=== PATIENT | female | born 1955 | race Caucasian/White ===

== ENCOUNTER 2023-03-29 07:46 | Outpatient (REF) | payer MEDICARE, OTHER, SELFPAY ==
--- NOTE | ~2023-03-29 | XR_ITS ---
EXAMINATION: XR SHOULDER, LEFT CLINICAL INFORMATION: Pain. COMPARISON: None available. TECHNIQUE: AP neutral and scapular Y views of the left shoulder are submitted. FINDINGS: Bony alignment and mineralization are normal. The glenohumeral joint is intact. The acromioclavicular interval is widened to 1.0 cm. The coracoclavicular interval is normal. No fracture is seen. There is no soft tissue calcification or foreign body. No left pneumothorax is seen. XR/XR shoulder LT min 2V IMPRESSION: Findings are consistent with a left acromioclavicular separation injury. No fracture is seen.
== END 2023-03-29 07:47 | disposition home or self-care (01) ==
LOC: HO.HOSX 07:46
PROVIDERS: Visit Provider Orthopaedic Surgery
DX: M75.02 Adhesive capsulitis of left shoulder (principal); M25.512 Pain in left shoulder
CPT/HCPCS: 73030; 99212

== ENCOUNTER 2023-03-29 08:54 | Outpatient (AMB) | payer MEDICARE, OTHER, SELFPAY ==
--- NOTE | 2023-03-29 09:03 | A.OFFVIS_ITS ---
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 Hernandez for an evaluation of left shoulder. Patient reports around [id number] she had b/l shoulder surgery for frozen shoulders. The patient states that she was doing fairly well up until 1 year ago. At that time she re-injured her left shoulder while lifting heavy object. Since that time her pain and stiffness have gotten progressively worse in spite of continued non operative treatments. She has tried Tylenol and anti- inflammatory medicines which gave her minimal relief. She has also done physi asim therapy for 12 weeks over the last 6 months which aggravated her pain. She has had cortisone injections in the past which gave her minimal relief. The patient reports difficulty lifting her left hand above shoulder height. Allergies No Known Allergies Allergy (Verified 03/29/23 09:06) Medication List - Last Reconciled 03/29/23 by Lucho Hernandez MD No Known Home Meds [facility] Surgical History (Updated 03/29/23 @ 09:17 by JAMAR Aviles) Hx of shoulder surgery Social History (Updated 03/29/23 @ 09:06 by JAMAR Aviles) Patient Tobacco Use Status: Never used Tobacco Current occupational status: retired Current occupation: right hand dominant Physical Exam Vital Signs: BMI result Body Mass Index 28.5 Const Other: Well-nourished well-developed very friendly female awake alert and oriented x3 in no acute distress Lungs clear to auscultation bilaterally with symmetric expansion Cardiovascular exam regular rate and rhythm Abdominal exam is soft nontender nondistended Extrem Other: Bilateral upper extremity examination shows good capillary refill, no skin lesions noted, normal sensation light touch Left shoulder examination shows that the surgical incisions are well healed, no erythema, decreased active and passive range of motion when compared to her right shoulder, 4+ over 5 strength with supraspinatus testing, positive impingement signs, tenderness over her acromioclavicular joint, no instability Results Reviewed Results Reviewed: X-rays of the patient's left shoulder shows acromioclavicular joint narrowing, type 2 acromion, no acute bony abnormalities Assessment & Plan Assessment & Plan (1) Adhesive capsulitis of left shoulder: Code(s): M75.02 - Adhesive capsulitis of left shoulder Plan: Ms. Rea presents with progressively worsening left shoulder pain and stiffness due to impingement syndrome, acromioclavicular joint arthritis and adhesive capsulitis. I had a lengthy discussion with the patient regarding the treatment options. At this point she has failed continued non operative treatments. The risks and benefits of left shoulder surgery were discussed at length with the patient. The patient wishes to proceed with surgery. Surgery will most likely involve left shoulder diagnostic arthroscopy with distal clavicle excision, acromioplasty, capsular release and manipulation under anesthesia. Because the patient's symptoms are severe and intractable we will schedule her surgery for as soon as possible. Coronavirus precautions will be taken. Patient will continue with her range of motion exercises in the meantime to prevent further stiffness. Feel free to call me at any time should questions regarding her orthopedic management arise. Thank you very much past past this very friendly patient. I spent 22 minutes in reviewing the patient's records and imaging studies, seeing the patient and documenting in the medical record. Orders: Orders XR shoulder LT min 2V Today M25.512 - Pain in left shoulder Coding Level of Care Code Est Pt Level 2 (54368) Diagnoses Adhesive capsulitis of left shoulder M75.02
[2023-03-29 09:06] VITALS: BMI 28.5
== END 2023-03-29 09:34 | disposition home or self-care (01) ==
PROVIDERS: PCP Internal Medicine; Visit Provider Orthopaedic Surgery
DX: M75.02 Adhesive capsulitis of left shoulder (principal)
CPT/HCPCS: 99212

== ENCOUNTER 2023-04-21 07:13 | Day surgery (SDC) | payer MEDICARE, OTHER, SELFPAY ==
[2023-04-18 14:47] VITALS: BMI 28.5
--- NOTE | 2023-04-20 09:04 | HO.ANESPROP2 ---
Documented by User: Nano Berrios NP 04/20/23 09:09 HPI - Anesthesia Eval Consult details Narrative: 67yo F Left Shoulder Arthroscopy distal clavicle excision, acromioplasty capsular release PMFSH Active Problems Active Problems: All Active Problems (Updated 04/18/23 @ 14:44 by Estefany Rivera RN) Adhesive capsulitis of left shoulder (Acute) Left shoulder pain (Acute) Past Medical History Medical History Left shoulder pain Surgical History Surgical History Hx of colonoscopy Hx of appendectomy Hx of shoulder surgery Social History Social History Patient Tobacco Use Status: Never used Tobacco Current occupational status: retired Current occupation: right hand dominant Meds Allergies Allergy/AdvReac Type Severity Reaction Status Date / Time No Known Allergies Allergy Verified 04/21/23 07:34 Home Medications Medication Instructions Recorded Confirmed Last Taken Type estradiol 0.01% (0.1 mg/gram) 1 g vaginal 2XW 04/18/23 04/18/23 Unknown History vaginal cream Exam Exam Date and Time: April 20, 2023 0904 Height,Weight and Vital Signs: Height 5 ft 4 in Weight 75.296 kg Assessment and Plan Assessment Anesthesia Assessment: Chart Reviewed Documented by User: Murray Mcneil MD 04/23/23 20:40 PMFSH Past Medical History Medical History Left shoulder pain Family History Family history of problems with anesthesia: No Surgical History Surgical History Hx of colonoscopy Hx of appendectomy Hx of shoulder surgery History of Problems with Anesthesia: Yes Social History Social History Patient Tobacco Use Status: Never used Tobacco Current occupational status: retired Current occupation: right hand dominant Meds Allergies Allergy/AdvReac Type Severity Reaction Status Date / Time No Known Allergies Allergy Verified 04/21/23 07:34 Home Medications Medication Instructions Recorded Confirmed Last Taken Type estradiol 0.01% (0.1 mg/gram) 1 g vaginal 2XW 04/18/23 04/18/23 Unknown History vaginal cream Exam Airway Mallampati Class: II TM Dist: >3cm Neck ROM: Full Loose/Missing/Broken Teeth: Yes Heart: rrr Lungs: cta Assessment and Plan Assessment Anesthesia Assessment: Anesthesia Plan Discussed Final Anesthetic Review Family History of Problems with Anesthesia: No History of Problems with Anesthesia: Yes NPO: No ASA Class: I Final Preanesthetic Review: Meds/Allgs Chart Reviewed, Consent Obtained/Reviewed and Anes Risks/Benef Reviewed Patient Risk: Intermediate Procedure Risk: Intermediate Anesthetic Plan Anesthetic Plan: GA and Regional Block Disposition: Standard PACU
[2023-04-21 07:35] VITALS: BMI 28.5
[2023-04-21] MEDS: Lactated Ringers 1,000 ML 100 ML IVCONT (07:54)
--- NOTE | 2023-04-21 10:49 | P.BOP_ITS ---
Brief Operative Note Date of Service: 04/21/23 Pre-op diagnosis: Left shoulder impingement syndrome, left shoulder adhesive capsulitis, left shoulder acromioclavicular joint arthritis Post-op diagnosis: same Procedure: Left shoulder diagnostic arthroscopy with left shoulder arthroscopic acromioplasty, left shoulder arthroscopic distal clavicle excision, left shoulder arthroscopic anterior capsular release, left shoulder manipulation unde r anesthesia Implants: none Surgeon: Lucho Hernandez MD Anesthesia: GETA and regional Was an Stripping Shovel Operator used for this Procedure?: No Estimated blood loss (mL): 10 Pathology: none sent Condition: stable Disposition: PACU
--- NOTE | 2023-04-21 10:50 | W.PM.OPN ---
Operative Note Operative Note Date of Service: 04/21/23 Narrative: After the patient was identified as Kayleen Rea and their left shoulder was initialed by myself the patient was brought to the holding area where a left shoulder interscalene regional block was performed by the anesthesiologist in routine fashion. The patient was then brought to the operating room where general anesthesia was induced by the anesthesiologist in routine fashion. The patient was given 2 g of IV Ancef preoperatively for infection prophylaxis. Examination under anesthesia of the patient's left shoulder showed decreased range of motion when compared to the right shoulder. The patient's left shoulder had forward flexion to 140 degrees compared to 170 degrees, external rotation to 30 degrees compared to 60 degrees, and internal rotation to 40 degrees compared to 50 degrees. The patient was gently positioned in the beach chair position with all bony prominences well padded. The patient's left shoulder region and upper extremity were prepped and draped in sterile fashion. A formal time-out was completed. A #11 scalpel blade was used to make a posterior portal 2 cm inferior and 1 cm medial to the posterolateral corner of the acromion. Blunt trocar technique was used to enter the glenohumeral joint in routine fashion. An anterior portal was made just lateral to the coracoid process after proper positioning was confirmed using a spinal needle. Diagnostic arthroscopy showed minimal degenerative changes of the glenoid and humeral head articular surfaces. There was no evidence of rotator cuff tearing. There was no evidence of injury to the biceps tendon or its insertion onto the glenoid. There was inflammation of the anterior joint capsule consistent with adhesive capsulitis. The ArthroCare Wand was then used to perform an anterior capsular release between the inferior border of the biceps tendon and the superior border of the subscapularis tendon. The arthroscope was then placed from the posterior portal into the subacromial space. A lateral portal was made 2 fingerbreadths lateral to the anterior lateral corner of the acromion. The ArthroCare Wand was used to ablate soft tissues along the undersurface of the acromion as well as to excise the coracoacromial ligament. There was a sharp spur along the undersurface of the acromion which was removed using the hooded bur. The arthroscope was then placed into the lateral portal and the acromioplasty was completed with the bur in the posterior portal using the posterior aspect of the acromion as a cutting block. The ArthroCare Wand was then brought in through the anterior portal and was used to ablate soft tissues along the acromioclavicular joint and distal clavicle. The posterior and superior ligamentous structures were left intact. A distal clavicle excision of 3 mm was performed using the hooded bur. Any remaining bursal tissue was removed using the arthroscopic shaver. The subacromial space was irrigated and then drained. All arthroscopic instruments were removed. A gentle manipulation under anesthesia was then performed. Full passive range of motion was easily obtained. The 3 portals were closed with 3-0 nylon interrupted suture. The subacromial space was injected with Marcaine. Dry sterile dressing was placed over all incisions. The patient's left upper extremity was placed into a sling. The patient was awoken and extubated in the operating room. The patient was transferred to the recovery room in stable condition.
[2023-04-21 10:51] VITALS: BP 120/54; PULSE 77; RESP 15; TEMP 36.1; O2SAT 97
[2023-04-21 10:56] VITALS: BP 122/58; PULSE 75; RESP 17; O2SAT 92
[2023-04-21 11:01] VITALS: BP 127/57; PULSE 74; RESP 17; O2SAT 93
[2023-04-21 11:06] VITALS: BP 121/60; PULSE 76; RESP 18; O2SAT 94
[2023-04-21 11:27] VITALS: BP 114/43; PULSE 74; RESP 18; TEMP 36.2; O2SAT 96
== END 2023-04-21 12:09 | disposition home or self-care (01) ==
PROVIDERS: PCP Internal Medicine; Visit Provider Orthopaedic Surgery
PROC: (CPT 29805; principal; 2023-04-21 09:00)
DX: M75.42 Impingement syndrome of left shoulder (principal); M75.02 Adhesive capsulitis of left shoulder; M19.022 Primary osteoarthritis, left elbow; Z87.828 Personal history of other (healed) physical injury and trauma; Z98.890 Other specified postprocedural states
CPT/HCPCS: 29824; 29825; 29826; J0171; J0690; J2250; J2405; J2795; J3010

== ENCOUNTER → 2023-04-21 07:13 | Outpatient (BNV) | payer MEDICARE, OTHER, SELFPAY | PROVIDERS: PCP Internal Medicine; Visit Provider Orthopaedic Surgery | DX: M75.42 Impingement syndrome of left shoulder (principal); M75.02 Adhesive capsulitis of left shoulder; M19.012 Primary osteoarthritis, left shoulder | CPT/HCPCS: 29824; 29825; 29826 ==

== ENCOUNTER 2023-05-03 08:16 | Outpatient (AMB) | payer MEDICARE, OTHER, SELFPAY ==
--- NOTE | 2023-05-03 08:22 | A.OFFVIS_ITS ---
Intake Intake Visit Reasons: PO-Lt Shoulder Arthroscopy 04/21 Intake Note: Kayleen a 67 year old female who presents today for a post operative left shoulder on 04/21/23 Patient reports she is doing well, states mild soreness. She will start working with PT on 05/05/23. Allergies No Known Allergies Allergy (Verified 05/03/23 08:26) HPI PO-Lt Shoulder Arthroscopy 04/21 HPI Details 67-year-old female who returns to the [facility] today for post-op left shoulder , 04/21/[address] Hernandez. She continues to have mild soreness in her shoulder but is doing well otherwise. She is about to start physical therapy on 05/05/23. She has no other concerns. [facility] Medical History Left shoulder pain Surgical History Hx of colonoscopy Hx of appendectomy Hx of shoulder surgery Social History Patient Tobacco Use Status: Never used Tobacco Current occupational status: retired Current occupation: right hand dominant Review of Systems Const All systems reviewed & are unremarkable except as noted in HPI and below Physical Exam Extrem Other: Left shoulder: Incision clean, dry and intact. No erythema. She has a forward flexion to 110 degrees. She is able to activate RTC strength. NVI. Assessment & Plan Assessment & Plan (1) History of arthroscopy of left shoulder: Code(s): Z98.890 - Other specified postprocedural states Plan Sutures removed today, steri strips applied. She will begin physical therapy on May 05 to work on ROM, periscapular stabilization and gentle RTC strengthening. She can increase activity as tolerated and follow-up in [address] Hernandez, sooner if needed. Patient Instructions: Scribed for Hugh Castro PA-C, by Mauricio Gallo back office medical assistant, on 05/03/2023 at 8:30 AM EST. I, Hugh Castro PA-C, have personally reviewed and agree with the information entered by the scribe. Coding Level of Care Code Global (13788) Diagnoses History of arthroscopy of left shoulder Z98.890
== END 2023-05-03 08:48 | disposition home or self-care (01) ==
PROVIDERS: PCP Internal Medicine; Visit Provider Physician Assistant
DX: Z98.890 Other specified postprocedural states (principal)
CPT/HCPCS: 99024

== ENCOUNTER → 2023-05-03 08:16 | Outpatient (BNVA) | payer MEDICARE, OTHER, SELFPAY | PROVIDERS: PCP Internal Medicine; Visit Provider Physician Assistant ==

== ENCOUNTER 2023-06-01 08:56 | Outpatient (AMB) | payer MEDICARE, OTHER, SELFPAY ==
--- NOTE | 2023-06-01 09:17 | MHC.OFFVIS ---
Intake Intake Visit Reasons: PO-Lt Shoulder Arthroscopy 04/21 Intake Note: Patient is a 67 year old female that presents for her post op appointment. She had a left shoulder arthroscopy on 04/21/23. She states she has been attending physical therapy. She denies any fevers or chills. She is taking ibuprofen daily and ice for 10 minutes each day. Allergies No Known Allergies Allergy (Verified 06/01/23 09:19) Medication List - Last Reconciled 06/01/23 by Chacha Brown RN estradiol 0.01%(0.1mg/gram) 1 g vaginal 2XW PFSH Medical History Left shoulder pain Surgical History Hx of colonoscopy Hx of appendectomy Hx of shoulder surgery Social History Patient Tobacco Use Status: Never used Tobacco Current occupational status: retired Current occupation: right hand dominant Physical Exam Extrem Other: Left shoulder examination shows that the surgical incisions are well healed, no erythema, almost full range of motion when compared to her right shoulder, mild discomfort with range of motion, 5/5 strength with supraspinatus testing Assessment & Plan Assessment & Plan (1) Left shoulder pain: Code(s): M25.512 - Pain in left shoulder Plan: Ms. Rea continues to do well after undergoing left shoulder arthroscopic surgery on 04/21/2023. She will continue with her physical therapy exercises. The do's and don'ts of lifting were discussed at length with the patient. She will contact me prior to her follow-up appointment in 2-3 months should any questions or concerns arise. Feel free to call me at any time should questions regarding her orthopedic management arise. Orders: Orders XR shoulder LT min 2V Today M25.512 - Pain in left shoulder Coding Level of Care Code Global (88762) Diagnoses Left shoulder pain M25.512
== END 2023-06-01 09:28 | disposition home or self-care (01) ==
PROVIDERS: PCP Internal Medicine; Visit Provider Orthopaedic Surgery
DX: M25.512 Pain in left shoulder (principal)
CPT/HCPCS: 99024

== ENCOUNTER 2023-06-01 14:58 | Outpatient (REF) | payer MEDICARE, OTHER, SELFPAY ==
--- NOTE | ~2023-06-01 | XR_ITS ---
EXAMINATION: XR SHOULDER, LEFT CLINICAL INFORMATION: Pain. COMPARISON: Radiographs dated 03/29/2023. TECHNIQUE: AP external rotation, Grashey, scapular Y, and axillary views of the left shoulder. FINDINGS: There is bony demineralization. The glenohumeral joint is intact. The, clavicular intervals while 9 mm. The coracoclavicular interval is normal. No fracture is seen. No soft tissue calcifications or foreign body. No left pneumothorax is seen. XR/XR shoulder LT min 2V IMPRESSION: There is stable mild widening of the left acromioclavicular joint, consistent with a separation injury. No discrete fracture is seen.
== END 2023-06-01 14:59 | disposition home or self-care (01) ==
LOC: HO.HOSX 14:58
PROVIDERS: Visit Provider Orthopaedic Surgery
DX: M25.512 Pain in left shoulder (principal)
CPT/HCPCS: 73030

== ENCOUNTER 2023-06-09 09:00 | Outpatient (RCR) | payer MEDICARE, OTHER, SELFPAY ==
--- NOTE | 2023-05-05 09:50 | MHC.PT.EP ---
[facility] [place] Office [place] Office [place] Office [address] Maude Jaquez [address] [phone] F: [phone] F: [phone] F: [phone] F: [phone] Physical Therapy Plan of Care Date of Evaluation: 05/05/23 Date of Surgery: 04/21/23 Diagnosis: Adhesive capsulitis of L shoulder, s/p L shoulder arthroscopic debridement (04/21/23) Assessment: Kayleen is a 67 year old female who is referred to PT for adhesive capsulitis of L shoulder . Kayleen however stated that 2 weeks back (04/21/23) she had a arthroscopic surgery. Per brief op report she had- Left shoulder diagnostic arthroscopy with left shoulder arthroscopic acromioplasty, left shoulder arthroscopic distal clavicle excision, left shoulder arthroscopic anterior capsular release, left shoulder manipulation under anesthesia . She reports of having shoulder pain for about 2 months. Denies having any trauma or falls. On PT examination she presented with no TTP, 1-5/10 pain in L shoulder with movements, decreased L shoulder ROM, decreased L shoulder and scap strength, altered posture and altered GH rhythm. Due to this she has pain and difficulty performing ADLS. She would benefit from skilled PT to address the aforementioned impairments and improve tolerance to functional activities. Frequency and Duration: The patient will be seen 2/week for 5 weeks. Short Term Goals: 1. Pt will have 50% decrease in pain which will enable her to sleep through the night in 2 weeks. 2. Pt will have all shoulder ROM WNL which will enable her to dress her upper body without pain in 3 weeks. Umbrella Frame Maker Goals: 1. Pt demonstrate an increase in muscle strength by 1 grade which will enable to return to lifting and carrying for ADLS without pain in 5 weeks. 2. Pt will be independent with HEP for symptom management and maintenance following d/c in 5 weeks. Treatment Plan: Modalities to reduce pain, spasms and effusion. Manual therapy to restore motion and function. Therapeutic exercise to improve strength and flexibility. Neuromuscular re-education for posture and balance. Therapeutic activities to return to functional activities of daily living. Electronically signed by: Paradise Garcia PT DPT Please sign and return to therapist. Thank you for your referral.
--- NOTE | 2023-06-09 09:47 | MHC.PT.DC ---
[facility] [place] Office [place] Office [place] Office [address] Maude Jaquez [address] [phone] F: [phone] F: [phone] F: [phone] F: [phone] Physical Therapy Discharge Report Diagnosis: Adhesive capsulitis of L shoulder, s/p L shoulder arthroscopic debridement (04/21/23) Date of Surgery: 04/21/23 Date of Evaluation: 05/05/23 Date of Discharge: 06/09/23 Treatments to Date: 11 Cancellations to Date: 0 No Shows to Date: 0 Discharge Status: Achieved Goals Improved Function Independent with HEP Discharge Summary: Kayleen has completed 11 PT visits and has achieved all goals set for her. She is independent with all her HEP and has returned to PLOF. She is therefore being d/c from PT today. I reviewed all HEP and she was in agreement with the plan. Electronically signed by: Paradise Garcia, PT DPT Please sign and return to therapist. Thank you for your referral.
== END 2023-06-09 09:47 | disposition home or self-care (01) ==
LOC: HO.PT 09:00
PROVIDERS: PCP Internal Medicine; Visit Provider Physician Assistant
DX: M75.02 Adhesive capsulitis of left shoulder (principal)
CPT/HCPCS: 97110; 97140; 97161; 97530

== ENCOUNTER 2023-08-08 09:00 | Outpatient (AMB) | payer MEDICARE, OTHER, SELFPAY ==
--- NOTE | 2023-08-08 09:06 | A.OFFVIS_ITS ---
Intake Intake Visit Reasons: PO-Lt Shoulder Arthroscopy 04/21/23 Intake Note: Kayleen is a 67 year old female who presents today for a follow up visit s/p Left shoulder Arthroscopy on 04/21/23. Patient reports having a numbing sensation and pain that starts from her shoulder down to her hand. Patient also reports progressively worsening neck pain. She describes her pain as sharp in nature. Her pain has gotten worse over the last year in spite of continued non operative treatments. She has tried Tylenol and anti-inflammatory medicines which gave her minimal relief. The patient has difficulty sleeping because of her pain. She denies any pain in her shoulder. She denies any fevers or chills. She has done physical therapy exercises which aggravated her pain. Allergies No Known Allergies Allergy (Verified 08/08/23 09:22) Medication List - Last Reconciled 08/08/23 by Lucho Hernandez MD estradiol 0.01%(0.1mg/gram) 1 g vaginal 2XW methylprednisolone (Medrol (Lupillo)) PO PER PK DIR [facility] Medical History (Updated 08/08/23 @ 09:42 by Lucho Hernandez MD) Left shoulder pain Surgical History Hx of colonoscopy Hx of appendectomy Hx of shoulder surgery (~2009) Social History Patient Tobacco Use Status: Never used Tobacco Current occupational status: retired Current occupation: right hand dominant Physical Exam Const Other: Well-nourished well-developed very friendly female awake alert and oriented x3 in no acute distress Neck Other: Cervical spine examination shows pain with range of motion, left-sided paraspinal muscle tenderness, positive Spurling's test, 4/5 strength with testing of her left biceps and wrist extensors when compared to 5/5 strength on her right side Extrem Other: Left shoulder examination shows that the surgical incisions are well healed, no erythema, full range of motion when compared to her right shoulder, no discomfort with range of motion Assessment & Plan Assessment & Plan (1) Left shoulder pain: Code(s): M25.512 - Pain in left shoulder Plan: Ms. Rea is doing well after undergoing left shoulder arthroscopic surgery on 04/21/2023. She will continue with her home stretching program to prevent stiffness. Patient does have progressively worsening neck pain which radiates down to her left hand as well as associated left arm weakness possibly due to cervical stenosis or a disc herniation. Thus, I will send the patient for an MRI of her cervical spine for further evaluation. I will contact her by phone once the MRI results are available. I did give her a prescription for a Medrol Dosepak to help with her symptoms in the meantime. Feel free to call me at any time should questions regarding her orthopedic management arise. (2) Neck pain: Code(s): M54.2 - Cervicalgia Plan I spent 22 minutes in reviewing the patient's records and imaging studies, seeing the patient and documenting in the medical record. Orders: Orders MR cervical spine wo con Today M54.2 - Cervicalgia Medications: New methylprednisolone (Medrol (Lupillo)) PO PER PKG DIR 21 ea 0RF Coding Level of Care Code Est Pt Level 2 (32152) Diagnoses Left shoulder pain M25.512 Neck pain M54.2
== END 2023-08-08 09:43 | disposition home or self-care (01) ==
PROVIDERS: PCP Internal Medicine; Visit Provider Orthopaedic Surgery
DX: M25.512 Pain in left shoulder (principal); M54.2 Cervicalgia
CPT/HCPCS: 99213

== ENCOUNTER → 2023-08-08 09:00 | Outpatient (BNVA) | payer MEDICARE, OTHER, SELFPAY | PROVIDERS: PCP Internal Medicine; Visit Provider Orthopaedic Surgery | DX: M25.512 Pain in left shoulder (principal); M54.2 Cervicalgia; Z98.890 Other specified postprocedural states | CPT/HCPCS: 99212 ==

== ENCOUNTER 2023-08-31 12:48 | Outpatient (AMB) | payer MEDICARE, OTHER, SELFPAY ==
--- NOTE | 2023-08-31 13:01 | MHC.OFFVIS ---
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 She is a very nice 67-year-old female who has had 2-3 months of severe pain radiating down her left arm going into her shoulder blade into her forearm and hand with numbness into her fingers. Mostly it is her middle finger. The pain can be awful at night to where she is unable to sleep. She does not report feeling weakness of the arm. There are no symptoms on the right side. She had tried prednisone taper, and ibuprofen. To this point no other conservative treatment. [facility] and foraminal narrowing. She was sent to us for evaluation. Currently she is still having a significant amount of pain on a daily basis. If she moves her head the wrong way she can make the pain go down her arm. PMH: She is otherwise healthy, she had a shoulder arthroscopy a while ago. Denies any heart attacks, strokes, bleeding disorders, pulmonary problems or kidney issues Social hx: She has not smoke, drink or use any recreational drugs Medications: Ibuprofen Allergies: None Physical exam: She is awake alert oriented no acute distress, she has full strength of bilateral upper extremities, reflexes 3+ and symmetric. Gait is normal. Imaging review: Cervical MRI done at [facility] shows multilevel degenerative disc disease. At C5-6 there is disc degeneration with a slight amount of narrowing of the foramen bilaterally, mild to moderate central stenosis. At C6-7 on the left there is a disc osteophyte complex compressing the left C7 nerve root. Impression: 67-year-old female presents to the office for evaluation of what sounds like a left C7 radiculopathy secondary to the disc osteophyte complex at C6-7 on the left. She tried a prednisone taper, ibuprofen and tincture of time. She is neurologically intact. The symptoms are quite severe, particularly at night. We discussed the fact that if the pain is so severe and disabling she would be a good candidate for surgery, specifically anterior cervical diskectomy and fusion. At this time she has not quite ready to commit to the idea of surgery. Given that she has private insurance as a secondary insurance to Medicare they will require that she undergo physical therapy before surgery anyway so I gave her a referral to PT and asked her to come back to the office in 6 weeks and we can re-evaluate how she is doing. Thank you for allowing us to care for your patient. The total time spent with this visit with this patient was 45 minutes reviewing history, physical exam, cervical imaging review, and implementation of treatment plan or further diagnostic testing Cesar Heath MD,PhD [facility] Orders: Orders PT Evaluation and Treatment Today M48.02 - Spinal stenosis, cervical region Coding Level of Care Code New Pt Level 4 (85771) Diagnoses Cervical stenosis of spinal canal M48.02
== END 2023-08-31 13:34 | disposition home or self-care (01) ==
PROVIDERS: PCP Internal Medicine; Referring Provider Orthopaedic Surgery; Visit Provider Physician Assistant
DX: M48.02 Spinal stenosis, cervical region (principal)
CPT/HCPCS: 99204

== ENCOUNTER → 2023-08-31 12:48 | Outpatient (BNVA) | payer MEDICARE, OTHER, SELFPAY | PROVIDERS: PCP Internal Medicine; Referring Provider Orthopaedic Surgery; Visit Provider Physician Assistant | DX: M48.02 Spinal stenosis, cervical region (principal) | CPT/HCPCS: 99202 ==

== ENCOUNTER 2023-10-19 13:57 | Outpatient (AMB) | payer MEDICARE, OTHER, SELFPAY ==
--- NOTE | 2023-10-19 14:13 | HO.SPINEOV ---
Intake Intake Visit Reasons: PT f/up Intake Note: Ms. Kilgore is here today to F/u after PT. 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 She has about 2 more weeks left of physical therapy. She reports that the pain that was in the distal part of her arm is significantly better and the numbness is going away. She is still having significant subscapular pain as well as pain underneath her armpit and down into her elbow. Sleeping remains quite difficult. Her strength is excellent in a reflexes are intact bilaterally. I think this is resolving cervical radiculopathy and that in time it will continue to go away. However, I would like to follow-up with her in 1 month. If she has no better at that time and still having a lot of difficulty with pain then we can consider ACDF. I did review her films at [facility] Dr. Heath today and the target of choice would be the C6-7 disc which has a large osteophyte on the left compressing the left C7 nerve root. The patient was given risks, benefits of surgery as well as recovery. Total amount of time spent in this visit was 20 minutes in discussion of symptoms, cervical imaging results and subsequent plan of care Cesar Heath MD,PhD [facility] Coding Level of Care Code Est Pt Level 3 (14373) Diagnoses Cervical radiculopathy M54.12
== END 2023-10-19 14:40 | disposition home or self-care (01) ==
PROVIDERS: PCP Internal Medicine; Visit Provider Physician Assistant
DX: M54.12 Radiculopathy, cervical region (principal)
CPT/HCPCS: 99213

== ENCOUNTER → 2023-10-19 13:57 | Outpatient (BNVA) | payer MEDICARE, OTHER, SELFPAY | PROVIDERS: PCP Internal Medicine; Visit Provider Physician Assistant | DX: M54.12 Radiculopathy, cervical region (principal) | CPT/HCPCS: 99212 ==

== ENCOUNTER 2023-11-23 14:12 | Outpatient (AMB) | payer MEDICARE, OTHER, SELFPAY ==
--- NOTE | 2023-11-23 14:16 | HO.SPINEOV ---
Intake Visit Reasons: 1 month follow up Intake Note: Ms. 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 The arm pain is basically gone at this point in her strength is back to normal. She does still get some cramping in her subscapular area but it is not all that bothersome. At this point, I do not think we need to consider surgery as she is in recovery from her radiculopathy. We discussed the fact that if she continues to have back and forth situation where the pain comes and goes she may ultimately end up needing surgery but for right now things are okay. I will see her back if the pain returns. Total amount of time spent in this visit was 20 minutes in discussion of symptoms, cervical MRI imaging results and subsequent plan of care Cesar Heath MD,PhD [facility]
== END 2023-11-23 15:25 | disposition home or self-care (01) ==
PROVIDERS: PCP Internal Medicine; Visit Provider Physician Assistant
DX: M54.12 Radiculopathy, cervical region (principal)
CPT/HCPCS: 99213

== ENCOUNTER → 2023-11-23 14:12 | Outpatient (BNVA) | payer MEDICARE, OTHER, SELFPAY | PROVIDERS: PCP Internal Medicine; Visit Provider Physician Assistant | DX: M54.12 Radiculopathy, cervical region (principal) | CPT/HCPCS: 99212 ==

== ENCOUNTER 2023-12-15 14:14 | Outpatient (AMB) | payer MEDICARE, OTHER, SELFPAY ==
--- NOTE | 2023-12-15 14:42 | A.SPINEOV_ITS ---
Intake Visit Reasons: pain in the right arm Intake Note: Ms. Rea is here c/o pain in the right arm and would like to Discuss surgery Director Of Retail Required: No Allergies No Known Allergies Allergy (Verified 12/15/23 14:43) Assessment & Plan Assessment & Plan (1) Cervical radiculopathy: Code(s): M54.12 - Radiculopathy, cervical region Category: Medical Plan Mrs Rea is back in the office today. Unfortunately the left arm pain has come back full force. It radiates from her neck down into her left arm going into her forearm, the dorsal aspect of her hand into her middle in her ring finger. The pain has been terrible, she has not able to sleep at night, or able to f unction much during the day. She has been taking ibuprofen. At this point she has been through 3 months of physical therapy in the symptoms have come right back. I do not think there is much more usefulness to this. Dr. Heath and I had previously reviewed her imaging done at [facility], and despite the radiology report not suggesting a lot of compression, it is a poor quality study but we believe that there is a disc osteophyte or a disc herniation on the left at C6- 7. This would fit with her symptom presentation. We are going to order a new MRI just to confirm this for surgical planning since her last MRI was back in August. The symptoms had gone away but now that they have come back, we would like to be more clear that there is not a another disc herniation involved. I will call her to confirm the plan once the MRIs completed but we have tentatively scheduled her for an ACDF C6-7. Pt was given risk and benefits of surgery including but not limited to infection, hematoma , nerve injury,durotomy, weakness,bowel/bladder injury, persistent pain, vocal hoarseness as well as the option to continue with conservative treatment and patient wishes to proceed with surgery. Pt is aware they should stop their motrin, aspirin 7 days prior to surgery. All questions were answered to the best of our ability. If there is anything about this patients medical history that we have overlooked or concerns you have about us proceeding with surgery we would appreciate any input you can offer. Total amount of time spent in this visit was 20 minutes in discussion of symptoms, cervical MRI imaging results and subsequent plan of care Cesar Heath MD,PhD [facility] Orders: Orders MR cervical spine wo con Today M54.12 - Radiculopathy, cervical region Coding Level of Care Code Est Pt Level 3 (92362) Diagnoses Cervical radiculopathy M54.12
== END 2023-12-15 15:07 | disposition home or self-care (01) ==
PROVIDERS: PCP Internal Medicine; Visit Provider Physician Assistant
DX: M54.12 Radiculopathy, cervical region (principal)
CPT/HCPCS: 99213

== ENCOUNTER → 2023-12-15 14:14 | Outpatient (BNVA) | payer MEDICARE, OTHER, SELFPAY | PROVIDERS: PCP Internal Medicine; Visit Provider Physician Assistant | DX: M54.12 Radiculopathy, cervical region (principal) | CPT/HCPCS: 99212 ==

== ENCOUNTER 2023-12-20 08:00 | Outpatient (RCR) | payer MEDICARE, OTHER, SELFPAY ==
--- NOTE | 2023-09-18 10:35 | MHC.PT.EP ---
[facility] [place] Office [place] Office [place] Office [address] Maude Jaquez [address] [phone] F: [phone] F: [phone] F: [phone] F: [phone] Physical Therapy Plan of Care Date of Evaluation: 09/18/23 Date of Surgery: 04/21/23 (L shoulder) Diagnosis: Cervical radiculopathy Assessment: Kayleen is a pleasant 67 yo female presenting to skilled physical therapy evaluation and treatment with c/o cervical radiculopathy. Pt underwent L shoulder sx performed by Dr. Hernandez on 04/21/23 and attended PT services until 06/09/23. Pt reports sudden onset of constant sharp px in L anterior shoulder beginning in 07/29. She reports shooting pain and tingling down L UE to digits 3-5. Pt had cervical MRI, which revealed mild disc involvement through C5-7. She has the most functional difficulty with sleeping, reaching OH, vacuuming, and certain R UE movements. Upon evaluation, pt presents with radicular s/s, decreased cervical ROM, and periscapular tissue restriction. Pt demonstrates postural deficits consistent with poor deep neck flexor and periscapular stability, which is exacerbated throughout mobility. All UE dermatomes and myotomes are WNL, indicating no significant nerve involvement at this time. Kayleen would benefit from skilled PT services to address muscular imbalances, promote centralization of s/s, and provide education on postural stability for improved functional mobility and return to PLOF. Pt is recommended to attend PT 2x/week for 4 weeks. Frequency and Duration: The patient will be seen 2x/week for 4 weeks Short Term Goals: Pt will demonstrate independence with initial HEP through teach-back method showing proper adherence to PT Pt will report no radicular s/s below L elbow, indicating centralization of s/s Pt will be able to sleep without interruption for 1 consecutive week Prison Goals: Pt will demonstrate pain-free cervical ROM WNL, allowing improved mechanics throughout mobility Pt will be able to perform 15 consecutive chin tucks seated with proper form and DNF activation Pt will improve functional mobility as noted through statistically significant increase in NDI outcome measure Treatment Plan: Modalities to reduce pain, spasms and effusion. Manual therapy to restore motion and function. Therapeutic exercise to improve strength and flexibility. Neuromuscular re-education for posture and balance. Therapeutic activities to return to functional activities of daily living. Electronically signed by: Pamella Das, PT, DPT Please sign and return to therapist. Thank you for your referral.
--- NOTE | 2023-12-22 12:54 | MHC.PT.DC ---
[facility] [place] Office [place] Office [place] Office [address] Maude Jaquez [address] [phone] F: [phone] F: [phone] F: [phone] F: [phone] Physical Therapy Discharge Report Diagnosis: Cervical radiculopathy Date of Surgery: 04/21/23 (L shoulder) Date of Evaluation: 09/18/23 Date of Discharge: 12/22/23 Treatments to Date: Cancellations to Date: No Shows to Date: Discharge Status: Discharge Summary: Pt has made fair progress since SOC. She previously achieved centralization of her symptoms however her symptoms were exacerbated and she continues to have radicular symptoms throughout L UE. She has followed up with the spine clinic and has ultimately decided to undergo surgery in order to manage her symptoms. She is being D/C from skilled PT as she is scheduled for surgery next Electronically signed by: Pamella Das, PT, DPT Please sign and return to therapist. Thank you for your referral.
== END 2023-12-22 12:54 | disposition home or self-care (01) ==
LOC: HO.PT 08:00
PROVIDERS: PCP Internal Medicine; Visit Provider Physician Assistant
DX: M48.02 Spinal stenosis, cervical region (principal)
CPT/HCPCS: 97012; 97110; 97112; 97140; 97161; 97530

== ENCOUNTER 2024-01-04 10:56 | Day surgery (SDC) | payer MEDICARE, OTHER, SELFPAY ==
[2023-12-26 13:35] VITALS: BMI 27.8
[2024-01-04] VITALS (10 sets, daily range): BP systolic 120–143; BP diastolic 52–65; PULSE 57–75; RESP 14–16; TEMP 36.3–36.9; O2SAT 93–100; BMI 27.3
--- NOTE | ~2024-01-04 | FL_ITS ---
EXAMINATION: XR FLUOROSCOPY WITH IMAGES CLINICAL INFORMATION: C6-C7 anterior cervical disc with fusion. COMPARISON: None available. TECHNIQUE: Fluoroscopy Supervised By: Dr. Mitchell. Fluoroscopy Time: 0.2 min. Cumulative Dose: 3.56 mGy. DAP: 0.0374 mGym2. Images: 4. FINDINGS: Intraoperative fluoroscopy and spot films were performed during a procedure in the OR. Two images show mechanical anterior disc fusion at C6-C7. Please see Dr. Mitchell' report for complete details. FL/FL guidance in OR IMPRESSION: Intraoperative fluoroscopy and spot films were obtained. Please see Dr. Mitchell' report for complete details.
[2024-01-04] MEDS: methocarbamoL 750 MG TABLET PO (11:11)
[2024-01-04] MEDS: Gabapentin 300 MG CAPSULE PO (11:11)
[2024-01-04] MEDS: Lactated Ringers 1,000 ML 100 ML IVCONT (11:27)
--- NOTE | 2024-01-04 11:56 | MHC.SHP ---
Pre-Procedural Eval Section A - 24 Hr Update-Section A only Date of Service: 01/04/24 The patient is an INPATIENT: No The patient has been examined within 24 hours of the surgical procedure. The History & Physical has been completed within 30 days and I have reviewed it.: Yes Section B - Complete if H&P > 30 days Chief Complaint: Radiculopathy, cervical region Allergies: Allergies Allergy/AdvReac Type Severity Reaction Status Date / Time No Known Allergies Allergy Verified 01/04/24 11:33 Plan Diagnosis/Plan: Unchanged I have reviewed the history and physical and performed a pertinent physical examination on my patient. No changes have occurred unless specified. Anterior diskectomy and fusion C6-7 Time Spent With Patient Time: Total time managing care of this patient today _6___ minutes.
--- NOTE | 2024-01-04 12:10 | HO.ANESPROP2 ---
Documented by User: Nano Berrios NP 01/03/24 11:38 HPI - Anesthesia Eval Consult details Narrative: 68yo F for C6-7 Ant Cerv Discectomy w/ fusion No PAT visit PMFSH Active Problems Active Problems: All Active Problems Cervical radiculopathy (Acute) Cervical stenosis of spinal canal (Acute) Neck pain (Acute) History of arthroscopy of left shoulder (Acute) Adhesive capsulitis of left shoulder (Acute) Left shoulder pain (Acute) Past Medical History Medical History (Updated 01/04/24 @ 11:33 by Chacha Encinas RN) Rosacea Dense breasts Osteopenia Hyperlipidemia Anemia Adjustment disorder Back pain Elevated cholesterol Left shoulder pain Family History Family history of problems with anesthesia: No Surgical History Surgical History H/O section Hx of colonoscopy Hx of appendectomy Hx of shoulder surgery (~2009) History of Problems with Anesthesia: Yes Social History Social History Are you a primary care manager to a significant other at home: No Do you presently have visiting nurse or other home services: No Patient Tobacco Use Status: Never used Tobacco Use of substances other than those prescribed or required for medical reasons: No Have you been hit, kicked, punched, or otherwise hurt by someone within the past year? If so, by whom?: No Are you DNR?: No Advance Directives: No Advance Directives Information Provided: Yes Advance Directives on File: No Recently lost weight without trying: No Eating poorly because of decreased appetite: No Nutrition Risks: No Nutritional Risk Patient : No : No Poor oral hygiene: No Current occupational status: retired Current occupation: right hand dominant Meds Allergies Allergy/AdvReac Type Severity Reaction Status Date / Time No Known Allergies Allergy Verified 01/04/24 11:33 Home Medications ?Medication ?Instructions ?Recorded ?Confirmed ?Last Taken ?Type estradiol 0.01% (0.1 mg/gram) 1 g vaginal 2XW 04/18/23 12/26/23 Unknown History vaginal cream Exam Height,Weight and Vital Signs: Height 5 ft 4 in Weight 73.482 kg Pertinent Lab Results Pertinent Lab Results: CBC and BMP from outside facility 10/2023 WNL Narrative Narrative: EKG 10/2023 SB @ [address] abnormality No change from previous Assessment and Plan Assessment Anesthesia Assessment: Chart Reviewed Final Anesthetic Review Family History of Problems with Anesthesia: No History of Problems with Anesthesia: Yes Documented by User: Chacha Davis DO 01/04/24 12:13 HPI - Anesthesia Eval Consult details Narrative: 68 yo F for C6-7 Ant Cerv Discectomy w/ fusion PMFSH Past Medical History Medical History (Updated 01/04/24 @ 11:33 by Chacha Encinas RN) Rosacea Dense breasts Osteopenia Hyperlipidemia Anemia Adjustment disorder Back pain Elevated cholesterol Left shoulder pain Family History Family history of problems with anesthesia: No Surgical History Surgical History H/O section Hx of colonoscopy Hx of appendectomy Hx of shoulder surgery (~2009) History of Problems with Anesthesia: No Social History Social History Are you a primary care manager to a significant other at home: No Do you presently have visiting nurse or other home services: No Patient Tobacco Use Status: Never used Tobacco Use of substances other than those prescribed or required for medical reasons: No Have you been hit, kicked, punched, or otherwise hurt by someone within the past year? If so, by whom?: No Are you DNR?: No Advance Directives: No Advance Directives Information Provided: Yes Advance Directives on File: No Recently lost weight without trying: No Eating poorly because of decreased appetite: No Nutrition Risks: No Nutritional Risk Patient : No : No Poor oral hygiene: No Current occupational status: retired Current occupation: right hand dominant Meds Allergies Allergy/AdvReac Type Severity Reaction Status Date / Time No Known Allergies Allergy Verified 01/04/24 11:33 Home Medications ?Medication ?Instructions ?Recorded ?Confirmed ?Last Taken ?Type estradiol 0.01% (0.1 mg/gram) 1 g vaginal 2XW 04/18/23 12/26/23 Unknown History vaginal cream Exam Exam Date and Time: January 04, 2024 1208 Height,Weight and Vital Signs: Height 5 ft 4 in Weight 73.482 kg Height 5 ft 4 in Weight 72.121 kg Vital Signs Temperature 98.5 F 01/04/24 11:19 Pulse Rate 61 01/04/24 11:19 Respiratory Rate 15 01/04/24 11:19 Blood Pressure 143/65 H 01/04/24 11:19 Pulse Oximetry 99 01/04/24 11:19 Oxygen Delivery Method Room Air 01/04/24 11:19 Temperature 98.5 F 01/04/24 11:19 Pulse Rate 61 01/04/24 11:19 Respiratory Rate 15 01/04/24 11:19 Blood Pressure 143/65 H 01/04/24 11:19 Pulse Oximetry 99 01/04/24 11:19 Oxygen Delivery Method Room Air 01/04/24 11:19 Airway Mallampati Class: I TM Dist: >3cm Neck ROM: Limited Loose/Missing/Broken Teeth: No (patient denies any loose or broken teeth) Heart: S1S2 Lungs: CTAB Assessment and Plan Assessment Anesthesia Assessment: Anesthesia Plan Discussed and Chart Reviewed Final Anesthetic Review Family History of Problems with Anesthesia: No History of Problems with Anesthesia: No NPO: Yes ASA Class: II Final Preanesthetic Review: No Changes in Pt Med Stat, Meds/Allgs Chart Reviewed, Consent Obtained/Reviewed and Anes Risks/Benef Reviewed Patient Risk: Low Procedure Risk: Intermediate Anesthetic Plan Anesthetic Plan: GA and Agree w/ Assess. and Plan Disposition: Standard PACU
--- NOTE | 2024-01-04 14:21 | W.PM.OPN ---
Operative Note Operative Note Date of Service: 01/04/24 Narrative: Preoperative Diagnosis: Cervical radiculopathy, left side Procedure: C6-7 Anterior discectomy, arthrodesis and implantation cage ; C6-7 anterior instrumentation ; local autograft; microscope Informed Consent was obtained for this operation. I have explained the nature, purpose and benefits of the operation. I have discussed the risks and benefit of the operation including possible complications or adverse events with patient/family. Alternative(s) were discussed with the patient with their relative benefits and risks as well as the consequences of not accepting the operation were included in obtaining consent. Surgeon: BEBETO EWING MD, PHD Procedure Assisted By: NORTH Bragg Description of Procedure: This 68-year-old female suffering from a left cervical radiculopathy. MRI shows left C7 foraminal stenosis due to disc osteophyte complex. She was offered an anterior diskectomy and fusion The procedure complications were explained. The patient was consented. The patient was brought to the operating room and endotracheally intubated. The patient was put in supine position with slight extension of the neck. Prep and drape was done followed by timeout. A mid cervical incision was made followed by opening of the platysma. The prevertebral fascia was reached following the natural planes while the physician high school assistant football coach provided manual retraction. The prevertebral fascia was opened to expose the disc space. A spinal needle was placed in the disk space to confirm the correct level with xray. The longus colli muscles were released bilaterally and a self retaining retractor was inserted. Two [place] pins were placed in the C6-C7 vertebral bodies and distraction was give over the interspace. The discectomy was completed toward the posterior annulus of the disc. The microscope was brought in. The remainder of the discectomy was completed. The posterior ligament was opened and resected to expose the underlying dura. Osteophytes were resected from the body of C6 and C7 and saved for autograft. Bilateral foraminotomies were done. The endplates were prepared after which a 6 mm cage filled with autograft was inserted into the disc space. A separate attached plate was locked down with 2 x 14 mm screws as anterior instrumentation. Final x-rays in AP and lateral projection showed a satisfactory position of the implant. The physician high school assistant football coach took over. The [place] pin was removed. Hemostasis was done. He closed the incision in 2 layers with a 3-0 Vicryl. Steri-Strips used to approximate incision. An OpSite with Tegaderm was used to cover the incision. All sponge and needle counts were correct. Patient was extubated and transported in stable is to recovery room. Anesthesia: General Estimated Blood Loss (ml): 15 mL Duration of Surgery: 45 minutes Postoperative Plan: Discharge home Complications: None
--- NOTE | 2024-01-04 14:23 | PM.DS ---
DS: Providers Provider Date of Service: 01/04/24 Primary care physician: Fannie Sutton MD DS: Summary Time Attestation Discharge Coordination Time (in mins): 35 Quality: Safe Use of Opioids Does Pt have an Active Cancer Diagnosis on the Problem List?: No Quality: Stroke Does the patient have a stroke diagnosis?: No Physical Exam Vital Signs: Vital Signs: Last Vital Signs Temp 98.5 F 01/04/24 11:19 Pulse 61 01/04/24 11:19 Resp 15 01/04/24 11:19 BP 143/65 H 01/04/24 11:19 Pulse Ox 99 01/04/24 11:19 O2 Del Method Room Air 01/04/24 11:19 BMI result Body Mass Index 27.3 Discharge Plan Discharge Patient Disposition: Home, Self-Care Referrals: Salvador Sutton MD [Primary Care Provider] - 1 Week Discharge Medications: New oxycodone 5 mg tablet 5 mg PO Q6H PRN (Reason: severe pain (scale score 7-10)) Qty: 30 0RF Rx Instructions: Partial Fill upon patient request. Continued estradiol 0.01 % (0.1 mg/gram) cream 1 g vaginal 2XW Discharge Orders: Discharge Order (Routine); Ordered 01/04/24 Ordered By: Rancho Lozada Diet: Advance to usual diet Activity on Discharge: As tolerated Activity Restrictions/Additional Instructions: After your spinal surgery we ask you to observe the following restrictions/guidelines: Activity: It is normal to feel some discomfort as you increase your activity, but that will improve with time. We ask you avoid heavy lifting or acitivities that cause pain. As a general rule, 8lbs is a safe limit for lifting right after surgery. Walk as much as you feel comfortable but not to exhaustion. You will feel extra tired the first few days after surgery. Stay well hydrated. It is OK to walk up and down stairs You may return to driving when you are off narcotics (such as vicodin, oxycodone, dilaudid, etc), and you are back to normal functional capacity. If you have any concerns please check with office before driving. Return to work is specific to each patient and each surgery, so please speak with your doctor/PA at first follow up. Please bring paperwork such as FMLA at that time if you need it filled out. Medications: We will give you a short supply of narcotics after surgery (usually one weeks worth). If you need more please call the office but do not use more than prescribed. You will need to give our office 48 hours notice if you need narcotics refilled and we do not fill narcotics on weekends or evenings. If you are on a narcotic, it is a good idea to take a stool softener such as colace or senna to avoid constipation If you take blood thinner such as aspirin, Plavix, Coumadin, Effient, Eliquis etc for conditions such as Afib, DVT, Pulmonary embolus, coronary disease, stents etc please speak with your surgeon about specific details as to when you can resume these medications. You can resume NSAIDs on post op day 1 (eg: Motrin, Naproxen, etc). Follow up: Please call the office, , after surgery to arrange a 3 week follow up for wound check. Wound Care: You may remove your dressing on the first day after surgery. ?You may ?leave open to air. Please do not remove the steri strips underneath. they will fall off on their own in one week. IT IS NORMAL FOR THE WOUND TO OOZE OR BE BLOODY FOR A FEW DAYS AFTER SURGERY. ?IF THIS HAPPENS JUST PLACE NEW DRESSING OVER IT TO AVOID STAINING CLOTHES. You may shower on post op day # 1 We ask that you do not let the water soak the wound. If it does get wet, just towel dry lightly. Please do not scrub your incision or place any type of chemical/ointment on the wound. No tub baths, pools or jacuzzis for one month. If you have any leaking or redness from your wound, or fevers, please call the office. Print Language: Hungarian
[2024-01-04] MEDS: Ondansetron ODT 4 MG TAB.RAPDIS TRANSLINGU (16:27)
== END 2024-01-04 16:17 | disposition home or self-care (01) ==
PROVIDERS: PCP Internal Medicine; Visit Provider Neurological Surgery
PROC: (CPT 22551; principal; 2024-01-04 14:20)
DX: M48.02 Spinal stenosis, cervical region (principal); M54.12 Radiculopathy, cervical region
CPT/HCPCS: 22551; 22845; 22853; 20936; C1713; C1889; J0131; J0690; J1100; J1170; J2250; J2405; J2704; J3010

== ENCOUNTER → 2024-01-04 10:56 | Outpatient (BNV) | payer MEDICARE, OTHER, SELFPAY | PROVIDERS: PCP Internal Medicine; Visit Provider Neurological Surgery | DX: M54.12 Radiculopathy, cervical region (principal) | CPT/HCPCS: 20936; 22551; 22845; 22853; 99499 ==

== ENCOUNTER 2024-01-25 09:21 | Outpatient (AMB) | payer MEDICARE, OTHER, SELFPAY ==
--- NOTE | 2024-01-25 09:23 | A.SPINEOV_ITS ---
Intake Visit Reasons: 1st post op Intake Note: Ms. Rea is here today for her 1st post op appointment. Merchandise Presentation Associate Required: No Allergies No Known Allergies Allergy (Verified 01/04/24 11:33) Assessment & Plan Assessment & Plan (1) Cervical radiculopathy: Code(s): M54.12 - Radiculopathy, cervical region Category: Medical (2) S/P cervical spinal fusion: Code(s): Z98.1 - Arthrodesis status Category: Medical Plan Procedure: C6-7 ACDF Kayleen comes in today for her 1st postoperative visit. She reports she is satisfied with the surgery and feels better than she did pre-operatively. The patient reports she is up walking around and completing the majority of her ADLs. She reports that she no longer suffers from her left-sided shooting radiculopathy, but does still have some triceps burning on the left, and some sharps pains in her left axilla. She has not taking her narcotic pain medications anymore and reports she only took 4-5 of the medications after surgery. She asked several questions regarding the post-operative healing course which I answered to the best of my ability. She has encouraged not to swim until her incision site is fully healed over. No new neurological deficits. Patient is able to ambulate well, rises from a seated position without difficulty. Incision site is closed, well healing, with no signs of drainage. We will follow-up with the patient in 6 weeks for their 2nd postoperative visit. At that time we will get x-rays to review with the patient. Rancho Heath MD,PhD [facility] Coding Level of Care Code Global (82831) Diagnoses Cervical radiculopathy M54.12 S/P cervical spinal fusion Z98.1
== END 2024-01-25 09:37 | disposition home or self-care (01) ==
PROVIDERS: PCP Internal Medicine; Visit Provider Physician Assistant
DX: M54.12 Radiculopathy, cervical region (principal); Z98.1 Arthrodesis status
CPT/HCPCS: 99024

== ENCOUNTER → 2024-01-25 09:21 | Outpatient (BNVA) | payer MEDICARE, OTHER, SELFPAY | PROVIDERS: PCP Internal Medicine; Visit Provider Physician Assistant | DX: M54.12 Radiculopathy, cervical region (principal); Z98.1 Arthrodesis status | CPT/HCPCS: 99212 ==

== ENCOUNTER 2024-03-08 08:37 | Outpatient (REF) | payer MEDICARE, OTHER, SELFPAY ==
--- NOTE | ~2024-03-08 | XR_ITS ---
EXAMINATION: XR CERVICAL SPINE CLINICAL INFORMATION: Arthrodesis status. COMPARISON: None available. TECHNIQUE: 4 views of the cervical spine FINDINGS: Mild anterolisthesis of C3 on C4 with flexion. Mild anterolisthesis of C4 on C5 with flexion. Multilevel cervical spondylosis with loss of disc space height at C5-C6. Postsurgical changes with disc spacer at C6-C7. XR/XR cervical spine 4V IMPRESSION: 1. Postsurgical changes with disc spacer at C6-C7. 2. Multilevel cervical spondylosis with loss of disc space height at C5-C6.
== END 2024-03-08 08:38 | disposition home or self-care (01) ==
LOC: HO.HOSX 08:37
PROVIDERS: Visit Provider Physician Assistant
DX: M47.22 Other spondylosis with radiculopathy, cervical region (principal); Z98.1 Arthrodesis status
CPT/HCPCS: 72050; 99212

== ENCOUNTER 2024-03-08 08:45 | Outpatient (AMB) | payer MEDICARE, OTHER, SELFPAY ==
--- NOTE | 2024-03-08 08:47 | HO.SPINEOV ---
Intake Visit Reasons: 2nd post op with xrays Intake Note: Ms. Rea is here today for her 2nd post-op visit with x-rays. Griddle Attendant Required: No Allergies No Known Allergies Allergy (Verified 03/08/24 09:34) Assessment & Plan Assessment & Plan (1) S/P cervical spinal fusion: Code(s): Z98.1 - Arthrodesis status Category: Medical (2) Cervical radiculopathy: Code(s): M54.12 - Radiculopathy, cervical region Category: Medical Plan Mrs Rea is 2 months out from her ACDF C6-7. She is doing great, her are left arm pain is gone. She has no restrictions. Her x-rays look good in her wound is healed. She can follow up with us on an as-needed basis. Cesar Heath MD, PhD [facility] Orders: Orders XR cervical spine 4V Today Z98.1 - Arthrodesis status Coding Level of Care Code Global (12631) Diagnoses S/P cervical spinal fusion Z98.1 Cervical radiculopathy M54.12
== END 2024-03-08 09:47 | disposition home or self-care (01) ==
PROVIDERS: PCP Internal Medicine; Visit Provider Physician Assistant
DX: Z98.1 Arthrodesis status (principal); M54.12 Radiculopathy, cervical region
CPT/HCPCS: 99024

== ENCOUNTER 2025-05-06 08:38 | Outpatient (REF) | payer MEDICARE, OTHER, SELFPAY ==
--- NOTE | ~2025-05-06 | XR_ITS ---
EXAMINATION: XR KNEE, LEFT CLINICAL INFORMATION: M25.562 - Pain in left knee COMPARISON: None available. TECHNIQUE: Three views of the left knee. FINDINGS: There is mild narrowing of the medial joint space. There are small marginal sites along the medial joint line. There is no joint effusion. There is no sign of fracture. Patellofemoral joint is aligned. XR/XR knee LT 3V IMPRESSION: Mild osteoarthritis. Electronically signed by: Kobi Jennings MD 05/06/2025 09:45 AM EDT
--- OUTSIDE RECORDS SUMMARY | 2025-05-07 09:11 | XMS_ITS | Clinical Summary ---
Author Organization [facility] Address [address] [place] [address] Care Team Providers Care Cartography/Mapping Technician Name Role Phone Gibran Jane MD Primary [...] age to complete this topic Care Teams Cartography/Mapping Technician Relationship Specialty Start Date End Date Gibran Jane MD [address] [place] [address] PCP - General Flight Readiness Technician 12/11/18
== END 2025-05-06 08:39 | disposition home or self-care (01) ==
LOC: HO.HOSX 08:38
PROVIDERS: Visit Provider Orthopaedic Surgery
DX: S83.242A Other tear of medial meniscus, current injury, left knee, initial encounter (principal); X50.1XXA Overexertion from prolonged static or awkward postures, initial encounter
CPT/HCPCS: 73562; 99212

== ENCOUNTER 2025-05-06 09:22 | Outpatient (AMB) | payer MEDICARE, OTHER, SELFPAY ==
--- NOTE | 2025-05-06 09:36 | MHC.OFFVIS ---
Intake Visit Reasons: New prob- Lt knee pain Intake Note: Kayleen is a 69 year old female who presents with complaints of progressively worsening left knee pain and giving way. The patient states that she injured her knee approximately 6 months ago. She twisted her knee and had acute onset of pain. Since that time her symptoms have gotten progressively worse. She has failed the last 6 weeks of conservative treatment which has included Tylenol, ibuprofen, a home exercise program, physical therapy exercises as well as applying both ice and heat. Most of the pain is along the medial aspect of her knee. She states that her left knee will give out several times per day. At this point her left knee pain and mechanical symptoms are interfering with her activities of daily living and her ability to sleep well through the night. Allergies No Known Allergies Allergy (Verified 05/06/25 09:40) Medication List - Last Reconciled 05/06/25 by Lucho Hernandez MD alendronate 70 mg PO QWEEK estradiol 0.01%(0.1mg/gram) 1 g vaginal 2XW PFSH Medical History (Updated 05/06/25 @ 10:11 by Lucho Hernandez MD) Rosacea Dense breasts Osteopenia Hyperlipidemia Anemia Adjustment disorder Back pain Elevated cholesterol Left shoulder pain Surgical History (Updated 01/25/24 @ 09:34 by NORTH Bragg) H/O section Hx of colonoscopy Hx of appendectomy Hx of shoulder surgery (~2009) Social History Are you a primary patient care representative to a significant other at home: No Do you presently have visiting nurse or other home services: No Patient Tobacco Use Status: Never used Tobacco Current occupational status: retired Current occupation: right hand dominant Physical Exam Const Other: Well-nourished well-developed very friendly female awake alert and oriented x3 in no acute distress Extrem Other: Bilateral lower extremity examination shows good capillary refill, no skin lesions noted, normal sensation light touch Left knee examination shows a minimal effusion, minimal crepitus with range of motion, tenderness along her medial joint line, positive Pako's test, no instability Results Reviewed Results Reviewed: Standing full weight-bearing x-rays of the patient's left knee show mild diffuse joint space narrowing, no acute bony abnormalities Assessment & Plan Assessment & Plan (1) Tear of medial meniscus of left knee: Code(s): S83.242A - Other tear of medial meniscus, current injury, left knee, initial encounter Category: Medical Plan Mrs. Rea presents with progressively worsening left knee pain and mechanical symptoms most likely due to a medial meniscus tear. Thus, I will send the patient for an MRI of her left knee for further evaluation. I will see the patient back once the MRI is completed to discuss the findings and treatment options. Feel free to call me at any time should questions regarding her orthopedic management arise. I spent 21 minutes in reviewing the patient's records and imaging studies, seeing the patient and documenting in the medical record. Orders: Orders XR knee LT 3V Today M25.562 - Pain in left knee MR knee LT wo con 05/07/25 S83.242A - Other tear of medial meniscus, current injury, left knee, initial encounter Medications: New methylprednisolone (Medrol (Lupillo)) PO PER PKG DIR 21 ea 0RF Coding Level of Care Code Est Pt Level 3 (04797) Complex EM visit Add On G2211 Diagnoses Tear of medial meniscus of left knee S83.242A
--- OUTSIDE RECORDS SUMMARY | 2025-05-06 10:10 | XMS_ITS | Clinical Summary ---
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 Name Role Phone Gibran Jane MD Primary Care Provider + Medications Medication Sig Dispensed Refills Start Date End Date Status ibuprofen (IBUPROFEN 100 SONY STRENGTH) 100 MG chewable tablet ibuprofen 0 Active Active Problems Problem Noted Date Diagnosed Date Trochanteric bursitis, right hip 09/03/2019 Family History Medical History Relation Name Comments Cancer Brother Relation Name Status Comments Brother Social History Tobacco Use Types Packs/Day Years Used Date Smoking Tobacco: Never Assessed Sex and Gender Information Value Date Recorded Sex Assigned at Not on file Gender Identity Not on file Sexual Orientation Not on file Last Filed Vital Signs Vital Sign Reading Time Taken Comments Blood Pressure - - Pulse - - Temperature - - Respiratory Rate - - Oxygen Saturation - - Inhaled Oxygen Concentration - - Weight 72.6 kg (160 lb) 09/03/2019 10:05 AM EST Height 162.6 cm (5' 4 ) 09/03/2019 10:05 AM EST Body Mass Index 27.46 09/03/2019 10:05 AM EST Plan of Treatment Health Maintenance Due Date Last Done Comments Hepatitis C Screening 1955 COVID-19 Vaccine (#1) 03/26/1958 Depression Screening 1969 BMI Counseling 1975 Preventative Health Evaluation 1975 DTap / Tdap / Td (1 - Tdap) 1976 Colon Cancer Screening (Colonoscopy) 2002 Breast Cancer Screening (Mammogram) 2007 Shingrix-Zoster Vaccine (1 of 2) 2007 Fall Risk Assessment 2022 Osteoporosis Screening (DEXA Scan) 2022 Pneumococcal Vaccine (1 of 1 - PCV) 2022 Influenza Vaccine (#1) 2025 RSV Adult > 60+ Yrs or Pregn ant (1 - 1-dose 75+ series) 2032 Hepatitis B Vaccines Aged Out No long er eligible based on patient's age to complete this topic RSV Ped < 20 months Aged Out No longe r eligible based on patient's age to complete this topic Care Teams Adjunct Professor Of [employer] History Relationship Specialty Start Date End Date Gibran Jane MD [address] [place] [address] PCP - General Fagot Maker 12/11/18
--- OUTSIDE RECORDS SUMMARY | 2025-05-06 10:10 | XMS_ITS ---
Author Name [facility] Organization Unknown Encounters Encounter Type Encounter Reason Primary Diagnosis Location Date Ambulatory [facility] [place] 03/27/2023 Ambulatory [facility] [place] 03/03/2023
--- OUTSIDE RECORDS SUMMARY | 2025-05-06 10:10 | XMS_ITS | Data Portability ---
Author Organization [place] - [facility], Allergy Address [address] [address] Care Team Providers Care Senior Graphic Designer Name Role Phone NICCARON HALL Primary Care Provider Assessment Encounter Date Assessment Date Assessment LastModified by Organization Details LastModified Time 01/31/2025 01/31/2025 1. Tinnitus The patient reports a chronic, worsening case of left-sided tinnitus. Examination and auditory tests reveal normal structure and function. Suspected neurological origin; however, there is no definitive pharmacologic treatment available. Counseling focused on possible lifestyle adjustments, including caffeine reduction and maintaining sleep hygiene. Emphasis was put on understanding the condition's benign nature and ineffectiveness of additional background noise or hearing aids for her specific case. 2. Tympanic membrane muscle spasm Intermittent right ear clicking episodes suggest possible muscle spasms linked to the eustachian tube or tympanic drum movement. Natural resolution likely and not of significant concern given normal physical findings. No specific treatment required; reassurance provided that it does not present any threat to health. [email or web address] Not available 01/31/2025 14:53:48 01/31/2025 01/31/2025 Follow up with referring provider. [email or web address] Not available 01/31/2025 14:15:14 Plan of Treatment Reminders Order Date Submit Date Provider Last Modified By Organization Details Last Modified Time Details Appointments None record ed. Lab None record ed. Referral None record ed. Procedures None record ed. Surgeries None record ed. Imaging None record ed. Medication Orders None record ed. Patient TargetsNo targets recorded. Patient Instructions Encounter Date Encounter Id Patient Instructions Last Modified By Organization Details Last Modified Time 01/31/2025 [id number] Please note: Parts of this encounter note have been generated by AI based on audio conversation. Patient consent was required prior to utilizing this technology. Content review was required prior to finalizing the note. [email or web address] Not available 01/31/2025 14:53:48 Reason for Referral None Reported. Results Created Date Observation Date Name Description Value Unit Range Abnormal Flag Note LastModifiedBy Organization Detail LastModifiedTime 02/01/20 25 audio gram No observ ation record ed. BARCODE Not Available 2024 17:22:42 Result Notes None recorded. Problems Name Problem SNOMED Code Status Onset Date Resolution Date Notes Provider Name and Address Organization Details Recorded Time Mass of neck 778667151 Active 2015 Localized swelling, mass and lump, neck; Note: Date Diagnosed : 12/16/2015 12:34 PM (R22.1) Not Available [facility] 4 02:31:36 Neck swelling 961769283 Active 2015 Localized swelling, mass and lump, neck; Note: Date Diagnosed : 12/16/2015 12:34 PM (R22.1) Not Available [facility] 4 02:31:36 Disorder of smell 616258454 Active 2020 Unspecifi ed disturban marin of smell and taste; Note: Date Diagnosed : 1 2:06 PM (R43.9) Not Available [facility] 4 02:31:36 Disorder of taste 692424953 Active 2020 Unspecifi ed disturban marin of smell and taste; Note: Date Diagnosed : 1 2:06 PM (R43.9) Not Available [facility] 4 02:31:36 Bilateral tinnitus 21016172340 02 Active 2024 ZEB SOTELO MD 100 [facility], [place], [address] , [place] - [facility] 5 14:53:21 Sensorine ural hearing loss of bilateral ears 070091011 Active 2024 ZEB SOTELO MD 100 [facility] 100, [place], [address] , [place] - [facility] 14:53:23 Problem Notes None recorded. Procedures Surgical History Date Name Laterality Status Provider Name and Address Organization Details Recorded Time 01/31/2025 Comp Audio with Tymps - 88028 & 14584 completed LAURENT JOHNSON MA, [facility] [address] [place] [address],[place] [address], [place], [address], [place] - [facility] 01/31/2025 14:15:14 Imaging Results None recorded. Procedure Notes None recorded. Medical Equipment None Reported. Allergies No known drug allergies Medications Name Sig Start Date Stop Date Status Note LastModified by Organization Details LastModified Time alendrona te 70 mg tablet TAKE 1 TABLET BY MOUTH EVERY WEEK active Not Available Not Available No t Available aspirin 81 mg tablet,de layed release 07/21 completed Medicatio n ID: [id number] Du ration Value: 30 Brand Name: aspirin S end Method: E-Prescri bed Subs Allowed: subs OK Medica tionGener icName: aspirin Not Available Not Available Not Available metronida zole 0.75 % lotion 07/21 completed Medicatio n ID: [id number] Du ration Value: 30 Brand Name: metronida zole Send Method: E-Prescri bed Subs Allowed: subs OK Specia l Instructi on: APPLY AND RUB IN A THIN FILM TO AFFECTED AREAS TWICE DAILY.(AM AND PM) . Medicat ionGeneri cName: metronida zole Not Available Not Available Not Available Vitamin D2 1,250 mcg (50,000 unit) capsule 07/21 completed Medicatio n ID: [id number] Br and Name: Vitamin D2 Send Method: E-Prescri bed Subs Allowed: subs OK Medica tionGener icName: Vitamin D2 Not Available Not Available Not Available Estrace 0.01% (0.1 mg/gram) vaginal cream 07/21 completed Medicatio n ID: [id number] Du ration Value: 90 Brand Name: Estrace S end Method: E-Prescri bed Subs Allowed: subs OK Specia l Instructi on: APPLY 1 GRAM BY VAGINAL ROUTE 2 TIMES A WEEK Medi cationGen ericName: Estrace Not Available Not Available Not Available vit D3 50 mcg-levom efolate calcium 15 mg-zinc 25 mg-theani ne capsule Take by oral route. active Not Available Not Available No t Available Vitals Date Recorded Body height Body mass index (BMI) Body weight Provider Name and Address Organization Details Last Updated DateTime 01/31/2025 162.56 cm 28.7 kg/m2 80652.93 g ABBI CECY DILLARD - [facility] 01/31/2025 14:28:47 Social History None recorded. Functional Status Question Answer Note LastModified by Organizat ion Details LastModified Time What is your level of alcohol consumption? Occasional ccomi Information not available 01/31/2025 Mental Status None recorded. Family History Nothing Reported. Medical History Condition Response Allergies/Hayfever N Heart Problems N Anxiety N Tonsil Infections N Emphysema N Migraines N Thyroid Problems N Glaucoma N Depression N COPD N Developmental Delay N Nasal or Sinus Problems N Anemia N Immune System Disorder N Anesthesia Complications N Heart Attack ([place]) N Other Skin Condition N Diabetes N Rhinitis N Bleeding Disorder N Food Allergy N Arthritis N Hearing Loss N Hyperlipidemia N Cancer N Stroke N Dementia N Nasal polyps N Asthma N High Cholesterol N Sleep Disorder N GERD/Reflux N Liver Disease N Headaches N Fibromyalgia N Hypertension N Speech Delay N Kidney Disease N Gynecological HistoryNo gynecological history recorded. Obstetrics History GPAL:G 0 P 0 0 0 0 Past Encounters Encounter ID Performer Location Encounter Start Date Encounter Closed Date Diagnosis/Indication Diagnosis SNOMED-CT Code Diagnosis ICD10 Code Diagnosis IMO Codes Diagnosis Note [id number] ZEB SOTELO MD [facility] [address] [address] 01/31/2025 13:21:26 01/31/2025 15:46:32 Bilateral tinnitus [id number] 102 H93.13 [id number] Today we discussed the pathophysi ology of tinnitus and the absence of consistent ly successful pharmacolo gic treatments for tinnitus. We discussed masking strategies to decrease awareness of the tinnitus, including using a white noise machine, music, or television . We discussed how exposure to loud noise can worsen tinnitus so I recommende d hearing protection . We also discussed other ways to potentiall y help reduce awareness of tinnitus including avoidance of caffeine, salty meals and NSAIDs. Sensorineu ral hearing loss of bilateral ears 205071349 H90.3 [id number] Mild HF SNHL bilateral with otherwise normal hearing levels. likely age related and not specific to her tinnitus [id number] LAURENT JOHNSON MA, CCC-A [facility] [address] [address] 01/31/2025 13:30:14 01/31/2025 14:23:29 Bilateral tinnitus 5953340278 102 H93.13 Audiologic al evaluation results: Right ear: Normal hearing thru 4000Hz sloping to a mild loss with excellent word recognitio n. Left ear: Normal/ borderline normal thru 4000Hz sloping to a mild loss with excellent word recognitio n. Tympanomet ry: Right Ear:Type A Left Ear:Type A Health Concerns Section Related Observation LastModified by Organization Detai ls LastModified Time None Recorded Concern Status LastModified by Organization Details LastModified Time None Recorded Advance Directives Directive None Recorded Payers Insurance Date Sequence Insurance Name Policy Number Policy Bone Covered Member ID Bone Member ID Guarantor Name 01/31/2025 1 MEDICARE B-[place]: [employer] Kayleen A Álvaro [id number] Kayleen Álvaro 02/05/2025 2 [facility] (MEDICARE SUPPLEMENT) Kayleen A Álvaro [id number] Kayleen Álvaro 01/31/2025 1 [employer] [id number] Kayleen Álvaro [id number] Kayleen Álvaro Notes Date Note Type Note Provider Name and Address Organization Details Recorded Time 01/31/2025 text/html Audiological Evaluation HPIReported by Patient Longstanding tinnitus; getting louder LAURENT JOHNSON MA, CCC-A [address] [place] [address], [place], [address], [facility] - [facility] 01/31/2025 14:18:21 01/31/2025 text/html left tinnitus PV 07/21/2021 [place]osky phantosmia for cigarette smoke left side greater than right The patient is a 69-year-old female presenting with persistent left-sided tinnitus and intermittent right-sided ear clicking. Tinnitus began several years ago, increasing in intensity over time. No antecedent head trauma or medication changes were linked to its onset. It persists in noise-exposed environments and disrupts sleep only when waking during the night, although the patient otherwise enjoys a consistent and restful 6-7 hour nightly pattern. Also reports right ear clicking described as sporadic and not triggered by swallowing or teeth actions. Episodes are by days of silence but can occur without forewarning, irrespective of the time of day. Given her retired lifestyle, she faces minimal stress, enjoys regular sleep, and sustains a moderate caffeine intake averaging two 10-ounce cups daily. ZEB SOTELO MD [address] [place] [address], [place], [address], [facility] - [facility] 01/31/2025 14:55:18 OBGyn Episode No OBEpisode recorded.
== END 2025-05-06 10:08 | disposition home or self-care (01) ==
LOC: HO.HOS 09:22
PROVIDERS: PCP Internal Medicine; Visit Provider Orthopaedic Surgery
DX: S83.242A Other tear of medial meniscus, current injury, left knee, initial encounter (principal)
CPT/HCPCS: 99213; G2211

== ENCOUNTER → 2025-05-06 09:24 | Outpatient (BNV) | payer MEDICARE, OTHER, SELFPAY | PROVIDERS: Visit Provider Radiology Diagnostic Radiology | DX: M17.12 Unilateral primary osteoarthritis, left knee (principal) | CPT/HCPCS: 73562 ==

== ENCOUNTER → 2025-05-24 09:43 | Outpatient (BNV) | payer MEDICARE, OTHER, SELFPAY | PROVIDERS: PCP Internal Medicine; Visit Provider Radiology Diagnostic Ultrasound | DX: S83.242A Other tear of medial meniscus, current injury, left knee, initial encounter (principal); M22.2X2 Patellofemoral disorders, left knee; M76.52 Patellar tendinitis, left knee | CPT/HCPCS: 73721 ==

== ENCOUNTER 2025-05-24 09:45 | Outpatient (REF) | payer MEDICARE, OTHER, SELFPAY ==
--- NOTE | ~2025-05-24 | MR_ITS ---
EXAMINATION: MR KNEE WITHOUT CONTRAST, LEFT CLINICAL INFORMATION: Injury, evaluate meniscal tear COMPARISON: None available. TECHNIQUE: MRI of the knee without contrast was performed using routine sequences on a high-field scanner. FINDINGS: MENISCI: Medial Meniscus: Possible small inner margin/radial tear in the midportion of the posterior horn, as seen on the coronal sequence. Degenerative fraying/ill-defined tear in the inner third of the posterior horn otherwise.. Lateral Meniscus: Degenerative fraying/ill-defined tear of the posterior root/central posterior horn. LIGAMENTS: Cruciate: Intact Collateral: Intact EXTENSOR MECHANISM: Intact . Mild proximal patellar tendinosis. ARTICULAR CARTILAGE/BONE: Patellofemoral Compartment: Mild arthritis. Mild patellofemoral chondromalacia. Medial Compartment: No significant chondral loss Lateral Compartment: No significant chondral loss. No fracture. No aggressive marrow replacing lesion. JOINT FLUID AND BURSAE: Small joint fluid. Mild proximal soleus muscle edema, perhaps strain. Mild subcutaneous edema. MR/MR knee LT wo con IMPRESSION: * Degenerative fraying/ill-defined tear of the medial meniscal posterior horn. Possible small inner margin/radial tear. * Degenerative fraying/ill-defined tear of the lateral meniscal posterior root/central posterior horn. * Mild proximal patellar tendinosis. * Mild patellofemoral arthritis. *Proximal soleus muscle edema, perhaps strain. Electronically signed by: Joey Pedraza MD 05/26/2025 08:08 AM EDT
--- OUTSIDE RECORDS SUMMARY | 2025-05-24 09:47 | XMS_ITS | Clinical Summary ---
Author Organization [facility] Address [address] [place] [address] Care Team Providers Care Equine Dentist Name Role Phone Gibran Jane MD Primary [...] age to complete this topic Care Teams Equine Dentist Relationship Specialty Start Date End Date Gibran Jane MD [address] [place] [address] PCP - General Single Wire Saw Operator 12/11/18
--- OUTSIDE RECORDS SUMMARY | 2025-05-24 09:47 | XMS_ITS | Data Portability ---
Author Organization [place] - [facility], Allergy Address [address] [address] Care Team Providers Care Forestry Biology Specialist Name Role Phone NICCARON HALL Primary Care [...] By Organization Details Last Modified Time 01/31/2025 [id number] Please note: Parts of this encounter note [...] Organization Details Recorded Time Mass of neck 823181461 Active 2015 Localized swelling, mass and lump, neck; Note: Date Diagnosed : 12/16/2015 12:34 PM (R22.1) Not Available [facility] 4 02:31:36 Neck swelling 867177782 Active 2015 Localized swelling, mass and lump, neck; Note: Date Diagnosed : 12/16/2015 12:34 PM (R22.1) Not Available [facility] 4 02:31:36 Disorder of smell 790594502 Active 2020 Unspecifi ed disturban marin of smell and taste; Note: Date Diagnosed : 1 2:06 PM (R43.9) Not Available [facility] 4 02:31:36 Disorder of taste 298639253 Active 2020 Unspecifi ed disturban marin of smell and taste; Note: Date Diagnosed : 1 2:06 PM (R43.9) Not Available [facility] 4 02:31:36 Bilateral tinnitus 47802585161 02 Active 2024 ZEB SOTELO MD 100 [facility] 100, [place], [address] , [place] - [facility] 5 14:53:21 Sensorine ural hearing loss of bilateral ears 660559093 Active 2024 ZEB SOTELO MD 100 [facility] 100, [place], [address] , [place] - [facility] 14:53:23 Problem Notes None recorded. Procedures Surgical History Date Name Laterality Status Provider Name and Address Organization Details Recorded Time 01/31/2025 Comp Audio with Tymps - 50325 & 69871 completed LAURENT JOHNSON MA, [facility] [address] [place] [address],[place] [address], [place], [address], [place] - [facility] 01/31/2025 14:15:14 Imaging Results None recorded. [...] layed release 07/21 completed Medicatio n ID: [id number] Du ration Value: 30 Brand Name: aspirin S end Method: E-Prescri bed Subs Allowed: subs OK Medica tionGener icName: aspirin Not Available Not Available Not Available metronida zole 0.75 % lotion 07/21 completed Medicatio n ID: [id number] Du ration Value: 30 Brand Name: metronida zole Send Method: E-Prescri bed Subs Allowed: subs OK Specia l Instructi on: APPLY AND RUB IN A THIN FILM TO AFFECTED AREAS TWICE DAILY.(AM AND PM) . Medicat ionGeneri cName: metronida zole Not Available Not Available Not Available Vitamin D2 1,250 mcg (50,000 unit) capsule 07/21 completed Medicatio n ID: [id number] Br and Name: Vitamin D2 Send Method: E-Prescri bed Subs Allowed: subs OK Medica tionGener icName: Vitamin D2 Not Available Not Available Not Available Estrace 0.01% (0.1 mg/gram) vaginal cream 07/21 completed Medicatio n ID: [id number] Du ration Value: 90 Brand Name: Estrace [...] Updated DateTime 01/31/2025 162.56 cm 28.7 kg/m2 39945.93 g ABBI CECY DILLARD - [facility] 01/31/2025 14:28:47 Social History None recorded. [...] Disorder N Anesthesia Complications N Heart Attack ([place]) N Other Skin Condition N Diabetes N Rhinitis N Bleeding Disorder N Food Allergy N Arthritis N Hearing Loss N Hyperlipidemia N Cancer N Stroke N Dementia N Nasal polyps N Asthma N Sleep Disorder N GERD/Reflux N High Cholesterol N Liver Disease N Headaches N Fibromyalgia N Hypertension N Speech Delay N Kidney Disease N Gynecological HistoryNo gynecological history recorded. Obstetrics History GPAL:G 0 P 0 0 0 0 Past Encounters Encounter ID Performer Location Encounter Start Date Encounter Closed Date Diagnosis/Indication Diagnosis SNOMED-CT Code Diagnosis ICD10 Code Diagnosis IMO Codes Diagnosis Note [id number] ZEB SOTELO MD [facility] [address] [address] 01/31/2025 13:21:26 01/31/2025 15:46:32 Bilateral tinnitus [id number] 102 H93.13 [id number] Today we discussed the pathophysi ology of [...] Sensorineu ral hearing loss of bilateral ears 953413816 H90.3 [id number] Mild HF SNHL bilateral with otherwise normal hearing levels. likely age related and not specific to her tinnitus [id number] LAURENT JOHNSON MA, CCC-A [facility] [address] [address] 01/31/2025 13:30:14 01/31/2025 14:23:29 Bilateral tinnitus 2875401237 102 H93.13 Audiologic al evaluation results: Right [...] Member ID Guarantor Name 01/31/2025 1 MEDICARE B-[place]: [employer] Kayleen A Álvaro [id number] Kayleen Álvaro 02/05/2025 2 [facility] (MEDICARE SUPPLEMENT) Kayleen A Álvaro [id number] Kayleen Álvaro 01/31/2025 1 [employer] [id number] Kayleen Álvaro [id number] Kayleen Álvaro Notes Date Note Type Note Provider Name and Address Organization Details Recorded Time 01/31/2025 text/html Audiological Evaluation HPIReported by Patient Longstanding tinnitus; getting louder LAURENT JOHNSON MA, CCC-A [address] [place] [address], [place], [address], [facility] - [facility] 01/31/2025 14:18:21 01/31/2025 text/html left tinnitus [...] two 10-ounce cups daily. ZEB SOTELO MD [address] [place] [address], [place], [address], [facility] - [facility] 01/31/2025 14:55:18 OBGyn Episode No OBEpisode recorded.
== END 2025-05-24 09:46 | disposition home or self-care (01) ==
LOC: HO.MRI 09:45
PROVIDERS: PCP Internal Medicine; Visit Provider Orthopaedic Surgery
DX: S83.242A Other tear of medial meniscus, current injury, left knee, initial encounter (principal)
CPT/HCPCS: 73721

== ENCOUNTER 2025-05-29 14:44 | Outpatient (AMB) | payer MEDICARE, OTHER, SELFPAY ==
--- NOTE | 2025-05-29 14:52 | MHC.OFFVIS ---
Intake Visit Reasons: Left knee pain and giving way Intake Note: Kayleen is a 69 year old female who presents with complaints of progressively worsening left knee pain and giving way. The patient states that she injured her knee approximately 6 months ago. She twisted her knee and had acute onset of pain. Since that time her symptoms have gotten progressively worse. She has failed the last 6 weeks of conservative treatment which has included Tylenol, ibuprofen, a home exercise program, physical therapy exercises as well as applying both ice and heat. Most of the pain is along the medial aspect of her knee. She states that her left knee will give out several times per day. At this point her left knee pain and mechanical symptoms are interfering with her activities of daily living and her ability to sleep well through the night. Allergies No Known Allergies Allergy (Verified 05/29/25 14:54) Medication List - Last Reconciled 05/30/25 by Lucho Hernandez MD alendronate 70 mg PO QWEEK estradiol 0.01%(0.1mg/gram) 1 g vaginal 2XW methylprednisolone (Medrol (Lupillo)) PO PER PKG DIR PFSH Medical History Rosacea Dense breasts Osteopenia Hyperlipidemia Anemia Adjustment disorder Back pain Elevated cholesterol Left shoulder pain Surgical History H/O section Hx of colonoscopy Hx of appendectomy Hx of shoulder surgery (~2009) Social History Are you a primary skin care therapist to a significant other at home: No Do you presently have visiting nurse or other home services: No Patient Tobacco Use Status: Never used Tobacco Current occupational status: retired Current occupation: right hand dominant Physical Exam Const Other: Well-nourished well-developed very friendly female awake alert and oriented x3 in no acute distress Extrem Other: Bilateral lower extremity examination shows good capillary refill, no skin lesions noted, normal sensation light touch Left knee examination shows a minimal effusion, mild crepitus with range of motion, tenderness along her medial joint line, positive Pako's test, no instability Results Reviewed Results Reviewed: Standing full weight-bearing x-rays of the patient's left knee show mild diffuse joint space narrowing, no acute bony abnormalities MRI of the patient's left knee shows mild degenerative changes as well as a tear of the medial meniscus Assessment & Plan Assessment & Plan (1) Tear of medial meniscus of left knee: Code(s): S83.242A - Other tear of medial meniscus, current injury, left knee, initial encounter Category: Medical Plan Mrs. Rea presents with left knee pain and mechanical symptoms due to a medial meniscus tear. I had a lengthy discussion with the patient regarding the treatment options. At this point she appears to be failing continued non operative treatments. The risks and benefits of left knee arthroscopic surgery were discussed at length with the patient. The patient is considering undergoing left knee arthroscopic surgery later this year or early next year. She will contact my office to pick a surgery date if she chooses to do so. Surgery will involve left knee arthroscopic partial medial meniscectomy. She will follow up as instructed. Feel free to call me at any time should questions regarding her orthopedic management arise. I spent 20 minutes in reviewing the patient's records and imaging studies, seeing the patient and documenting in the medical record. Coding Level of Care Code Est Pt Level 3 (49392) Complex EM visit Add On G2211 Diagnoses Tear of medial meniscus of left knee S83.242A
--- OUTSIDE RECORDS SUMMARY | 2025-05-29 18:32 | XMS_ITS | Data Portability ---
Author Organization [place] [facility], Allergy Address [address] [address] Care Team Providers Care Chief Accounting Officer Name Role Phone NICCARON HALL Primary Care [...] By Organization Details Last Modified Time 01/31/2025 [id number] Please note: Parts of this encounter note [...] Organization Details Recorded Time Mass of neck [id number] Active 2015 Localized swelling, mass and lump, neck; Note: Date Diagnosed : 12/16/2015 12:34 PM (R22.1) Not Available [facility] 4 02:31:36 Neck swelling 593772169 Active 2015 Localized swelling, mass and lump, neck; Note: Date Diagnosed : 12/16/2015 12:34 PM (R22.1) Not Available [facility] 4 02:31:36 Disorder of smell 914434815 Active 2020 Unspecifi ed disturban marin of smell and taste; Note: Date Diagnosed : 1 2:06 PM (R43.9) Not Available [facility] 4 02:31:36 Disorder of taste 999464873 Active 2020 Unspecifi ed disturban marin of smell and taste; Note: Date Diagnosed : 1 2:06 PM (R43.9) Not Available [facility] 4 02:31:36 Bilateral tinnitus 16531474316 02 Active 2024 ZEB SOTELO MD 100 [facility] 100, [place], [address] , [place] - [facility] 5 14:53:21 Sensorine ural hearing loss of bilateral ears 466006101 Active 2024 ZEB SOTELO MD 100 [facility] 100, [place], [address] , [place] - [facility] 14:53:23 Problem Notes None recorded. Procedures Surgical History Date Name Laterality Status Provider Name and Address Organization Details Recorded Time 01/31/2025 Comp Audio with Tymps - 87452 & 71716 completed LAURENT JOHNSON MA, [facility]-A [address] [place] [address],[place] [address], [place], [address], [place] [facility] 01/31/2025 14:15:14 Imaging Results None recorded. [...] layed release 07/21 completed Medicatio n ID: [id number] Du ration Value: 30 Brand Name: aspirin S end Method: E-Prescri bed Subs Allowed: subs OK Medica tionGener icName: aspirin Not Available Not Available Not Available metronida zole 0.75 % lotion 07/21 completed Medicatio n ID: [id number] Du ration Value: 30 Brand Name: metronida zole Send Method: E-Prescri bed Subs Allowed: subs OK Specia l Instructi on: APPLY AND RUB IN A THIN FILM TO AFFECTED AREAS TWICE DAILY.(AM AND PM) . Medicat ionGeneri cName: metronida zole Not Available Not Available Not Available Vitamin D2 1,250 mcg (50,000 unit) capsule 07/21 completed Medicatio n ID: [id number] Br and Name: Vitamin D2 Send Method: E-Prescri bed Subs Allowed: subs OK Medica tionGener icName: Vitamin D2 Not Available Not Available Not Available Estrace 0.01% (0.1 mg/gram) vaginal cream 07/21 completed Medicatio n ID: [id number] Du ration Value: 90 Brand Name: Estrace [...] Updated DateTime 01/31/2025 162.56 cm 28.7 kg/m2 07129.93 g ABBI CECY DILLARD - [facility] 01/31/2025 14:28:47 Social History None recorded. Functional Status Question Answer Note LastModified by Organizat ion Details LastModified Time What is your level of alcohol consumption? Occasional ccomi Information not available 01/31/2025 Mental Status None recorded. Family History Nothing Reported. Medical History Condition Response Tonsil Infections N Emphysema N Glaucoma N Depression N COPD N Nasal or Sinus Problems N Anesthesia Complications N Arthritis N Hearing Loss N Cancer N Stroke N High Cholesterol N Liver Disease N Headaches N Fibromyalgia N Speech Delay N Kidney Disease N Allergies/Hayfever N Heart Problems N Anxiety N Migraines N Thyroid Problems N Developmental Delay N Anemia N Immune System Disorder N Heart Attack ([place]) N Other Skin Condition N Diabetes N Rhinitis N Bleeding Disorder N Food Allergy N Hyperlipidemia N Dementia N Nasal polyps N Asthma N Sleep Disorder N GERD/Reflux N Hypertension N Gynecological HistoryNo gynecological history recorded. Obstetrics History GPAL:G 0 P 0 0 0 0 Past Encounters Encounter ID Performer Location Encounter Start Date Encounter Closed Date Diagnosis/Indication Diagnosis SNOMED-CT Code Diagnosis ICD10 Code Diagnosis IMO Codes Diagnosis Note [id number] ZEB SOTELO MD [facility] [address] [address] 01/31/2025 13:21:26 01/31/2025 15:46:32 Bilateral tinnitus [id number] 102 H93.13 [id number] Today we discussed the pathophysi ology of [...] Sensorineu ral hearing loss of bilateral ears 524190424 H90.3 [id number] Mild HF SNHL bilateral with otherwise normal hearing levels. likely age related and not specific to her tinnitus [id number] LAURENT JOHNSON MA, CCC-A [facility] [address] [address] 01/31/2025 13:30:14 01/31/2025 14:23:29 Bilateral tinnitus [id number] 102 H93.13 Audiologic al evaluation results: Right [...] Member ID Guarantor Name 01/31/2025 1 MEDICARE B-[place]: [employer] Kayleen A Álvaro [id number] Kayleen Álvaro 02/05/2025 2 [facility] (MEDICARE SUPPLEMENT) Kayleen A Álvaro [id number] Kayleen Álvaro 01/31/2025 1 [employer] [id number] Kayleen Álvaro [id number] Kayleen Álvaro Notes Date Note Type Note Provider Name and Address Organization Details Recorded Time 01/31/2025 text/html Audiological Evaluation HPIReported by Patient Longstanding tinnitus; getting louder LAURENT JOHNSON MA, CCC-A [address] [place] [address], [place], [address], [facility] - [facility] 01/31/2025 14:18:21 01/31/2025 text/html left tinnitus [...] two 10-ounce cups daily. ZEB SOTELO MD [address] [place] [address], [place], [address], [facility] - [facility] 01/31/2025 14:55:18 OBGyn Episode No OBEpisode recorded.
--- OUTSIDE RECORDS SUMMARY | 2025-05-29 18:32 | XMS_ITS | Clinical Summary ---
Author Organization [facility] Address [address] [place] [address] Care Team Providers Care Counselor Education Professor Name Role Phone Gibran Jane MD Primary [...] age to complete this topic Care Teams Counselor Education Professor Relationship Specialty Start Date End Date Gibran Jane MD [address] [place] [address] PCP - General Motor Bus Driver 12/11/18
== END 2025-05-29 15:21 | disposition home or self-care (01) ==
LOC: HO.HOS 14:44
PROVIDERS: PCP Internal Medicine; Visit Provider Orthopaedic Surgery
DX: S83.242A Other tear of medial meniscus, current injury, left knee, initial encounter (principal)
CPT/HCPCS: 99213; G2211

== ENCOUNTER → 2025-05-29 14:44 | Outpatient (BNVA) | payer MEDICARE, OTHER, SELFPAY | PROVIDERS: PCP Internal Medicine; Visit Provider Orthopaedic Surgery | DX: S83.242A Other tear of medial meniscus, current injury, left knee, initial encounter (principal) | CPT/HCPCS: 99212 ==

== ENCOUNTER 2025-06-16 05:42 | Day surgery (SDC) | payer MEDICARE, OTHER, SELFPAY ==
--- OUTSIDE RECORDS SUMMARY | 2025-06-05 17:49 | XMS_ITS | Clinical Summary ---
Author Organization [facility] Address [address] [place] [address] Care Team Providers Care Injection Machine Operator Name Role Phone Gibran Jane MD Primary [...] age to complete this topic Care Teams Injection Machine Operator Relationship Specialty Start Date End Date Gibran Jane MD [address] [place] [address] PCP - General Organizational Development Specialist 12/11/18
--- OUTSIDE RECORDS SUMMARY | 2025-06-05 17:49 | XMS_ITS | Data Portability ---
Author Organization [place] - [facility], Allergy Address [address] [address] Care Team Providers Care Technical Delivery Manager Name Role Phone NICCARON HALL Primary Care [...] By Organization Details Last Modified Time 01/31/2025 [id number] Please note: Parts of this encounter note [...] Organization Details Recorded Time Mass of neck 387669858 Active 2015 Localized swelling, mass and lump, neck; Note: Date Diagnosed : 12/16/2015 12:34 PM (R22.1) Not Available [facility] 4 02:31:36 Neck swelling 528133713 Active 2015 Localized swelling, mass and lump, neck; Note: Date Diagnosed : 12/16/2015 12:34 PM (R22.1) Not Available [facility] 4 02:31:36 Disorder of smell 005854406 Active 2020 Unspecifi ed disturban marin of smell and taste; Note: Date Diagnosed : 1 2:06 PM (R43.9) Not Available [facility] 4 02:31:36 Disorder of taste 999265668 Active 2020 Unspecifi ed disturban marin of smell and taste; Note: Date Diagnosed : 1 2:06 PM (R43.9) Not Available [facility] 4 02:31:36 Bilateral tinnitus 23104662566 02 Active 2024 ZEB SOTELO MD 100 [facility] 100, [place], [address] , [place] - [facility] 5 14:53:21 Sensorine ural hearing loss of bilateral ears 713831048 Active 2024 ZEB SOTELO MD 100 [facility] 100, [place], [address] , [place] - [facility] 14:53:23 Problem Notes None recorded. Procedures Surgical History Date Name Laterality Status Provider Name and Address Organization Details Recorded Time 01/31/2025 Comp Audio with Tymps - 63620 & 84339 completed LAURENT JOHNSON MA, [facility] [address] [place] [address],[place] [address], [place], [address], [place] [facility] 01/31/2025 14:15:14 Imaging Results None recorded. Procedure [...] layed release 07/21 completed Medicatio n ID: [id number] Du ration Value: 30 Brand Name: aspirin S end Method: E-Prescri bed Subs Allowed: subs OK Medica tionGener icName: aspirin Not Available Not Available Not Available metronida zole 0.75 % lotion 07/21 completed Medicatio n ID: [id number] Du ration Value: 30 Brand Name: metronida zole Send Method: E-Prescri bed Subs Allowed: subs OK Specia l Instructi on: APPLY AND RUB IN A THIN FILM TO AFFECTED AREAS TWICE DAILY.(AM AND PM) . Medicat ionGeneri cName: metronida zole Not Available Not Available Not Available Vitamin D2 1,250 mcg (50,000 unit) capsule 07/21 completed Medicatio n ID: [id number] Br and Name: Vitamin D2 Send Method: E-Prescri bed Subs Allowed: subs OK Medica tionGener icName: Vitamin D2 Not Available Not Available Not Available Estrace 0.01% (0.1 mg/gram) vaginal cream 07/21 completed Medicatio n ID: [id number] Du ration Value: 90 Brand Name: Estrace [...] Updated DateTime 01/31/2025 162.56 cm 28.7 kg/m2 01124.93 g ABBI CECY DILLARD - [facility] 01/31/2025 14:28:47 Social History None recorded. Functional [...] Disorder N Anesthesia Complications N Heart Attack ([place]) N Other Skin Condition N Diabetes N [...] ICD10 Code Diagnosis IMO Codes Diagnosis Note [id number] ZEB SOTELO MD [facility] [address] [address] 01/31/2025 13:21:26 01/31/2025 15:46:32 Bilateral tinnitus [id number] 102 H93.13 [id number] Today we discussed the pathophysi ology of [...] Sensorineu ral hearing loss of bilateral ears 946334211 H90.3 [id number] Mild HF SNHL bilateral with otherwise normal hearing levels. likely age related and not specific to her tinnitus [id number] LAURENT JOHNSON MA, CCC-A [facility] [address] [address] 01/31/2025 13:30:14 01/31/2025 14:23:29 Bilateral tinnitus 0005041287 102 H93.13 Audiologic al evaluation results: Right [...] Member ID Guarantor Name 01/31/2025 1 MEDICARE B-[place]: [employer] Kayleen A Álvaro [id number] Kayleen Álvaro 02/05/2025 2 [facility] (MEDICARE SUPPLEMENT) Kayleen A Álvaro [id number] Kayleen Álvaro 01/31/2025 1 [employer] [id number] Kayleen Álvaro [id number] Kayleen Álvaro Notes Date Note Type Note Provider Name and Address Organization Details Recorded Time 01/31/2025 text/html Audiological Evaluation HPIReported by Patient Longstanding tinnitus; getting louder LAURENT JOHNSON MA, CCC-A [address] [place] [address], [place], [address], [facility] - [facility] 01/31/2025 14:18:21 01/31/2025 text/html left tinnitus PV [...] two 10-ounce cups daily. ZEB SOTELO MD [address] [place] [address], [place], [address], [facility] - [facility] 01/31/2025 14:55:18 OBGyn Episode No OBEpisode recorded.
[2025-06-11 08:46] VITALS: BMI 28.8
[2025-06-16] VITALS (10 sets, daily range): BP systolic 115–136; BP diastolic 52–60; PULSE 59–71; RESP 10–16; TEMP 36.1–36.9; O2SAT 96–100; BMI 28.6
[2025-06-16] MEDS: Lactated Ringers 1,000 ML 100 ML IVCONT (06:27)
--- NOTE | 2025-06-16 07:14 | HO.ANESPROP2 ---
Documented by User: Kindra Luevano NP 06/11/25 12:58 HPI - Anesthesia Eval Consult details Narrative: 69 yr old female for left Knee Arthroscopy,partial medial meniscectomy scheduled for 06/16/25, had phone PAT 06/11/25 s/p anterior cervical disectomy with fusion 12/2023, [place], ETT 7, reported PONV after this surgery. Osteopenia: on alendronate PMFSH Active Problems Active Problems: All Active Problems (Updated 06/10/25 @ 08:51 by Estefany Rivera RN) Tear of medial meniscus of left knee (Acute) Left knee pain (Acute) S/P cervical spinal fusion (Acute) Cervical radiculopathy (Acute) Cervical stenosis of spinal canal (Acute) Neck pain (Acute) History of arthroscopy of left shoulder (Acute) Adhesive capsulitis of left shoulder (Acute) Left shoulder pain (Acute) Past Medical History Medical History PONV (postoperative nausea and vomiting) Rosacea Dense breasts Osteopenia Hyperlipidemia Anemia Adjustment disorder Back pain Elevated cholesterol Left shoulder pain Family History Family history of problems with anesthesia: No Surgical History Surgical History History of excision of mass Hx of cervical discectomy H/O section Hx of colonoscopy Hx of appendectomy Hx of shoulder surgery (~2009) History of Problems with Anesthesia: No Social History Social History Are you a primary wound care rn to a significant other at home: No Do you presently have visiting nurse or other home services: No Patient Tobacco Use Status: Never used Tobacco Second Hand Smoke Exposure: No Use of substances other than those prescribed or required for medical reasons: No Have you been hit, kicked, punched, or otherwise hurt by someone within the past year? If so, by whom?: No Spiritual Healthcare Practices: no Orthodoxy Healthcare Practices: no Cultural Healthcare Practices: no Are you DNR?: No Advance Directives: Yes (states spouse is HCP) Advance Directives Information Provided: Yes (as above noted) Advance Directives on File: No Advance Directives Date on File: 06/16/25 Patient : No : No Current occupational status: retired Current occupation: right hand dominant Meds Allergies Allergy/AdvReac Type Severity Reaction Status Date / Time No Known Allergies Allergy Verified 06/16/25 07:09 Home Medications ?Medication ?Instructions ?Recorded ?Confirmed ?Last Taken ?Type alendronate 70 mg tablet 70 mg PO QWEEK 05/06/25 06/16/25 Unknown History cholecalciferol (vitamin D3) 50 50 mcg PO DAILY 06/11/25 06/16/25 Unknown History mcg (2,000 unit) capsule (Vitamin D3) multivitamin 1 tab PO DAILY 06/11/25 06/16/25 Unknown History Exam Height,Weight and Vital Signs: Height 5 ft 4 in Weight 76.204 kg Pertinent Lab Results Pertinent Lab Results: LABS at [facility] 12/5024 Sodium 136 Potassium 4.9 Glucose 97 BUN 13 Creat 0.80 CBC WBC 6.0 RBC 3.70 Hgb 11.9 Hct 35.6 Platelet 304 Narrative Narrative: EKG 10/2023 Sinus braydcardia, rate [address] abnormality Assessment and Plan Final Anesthetic Review Family History of Problems with Anesthesia: No History of Problems with Anesthesia: No Documented by User: Chacha Davis DO 06/16/25 07:16 HPI - Anesthesia Eval Consult details Narrative: 69 yr old female for left Knee Arthroscopy,partial medial meniscectomy scheduled for 06/16/25, had phone PAT 06/11/25 s/p anterior cervical disectomy with fusion 12/2023, [place], ETT 7, reported PONV in PACU which resolved once she was discharged that same day. Osteopenia: on alendronate [facility] Past Medical History Medical History PONV (postoperative nausea and vomiting) Rosacea Dense breasts Osteopenia Hyperlipidemia Anemia Adjustment disorder Back pain Elevated cholesterol Left shoulder pain Family History Family history of problems with anesthesia: No Surgical History Surgical History History of excision of mass Hx of cervical discectomy H/O section Hx of colonoscopy Hx of appendectomy Hx of shoulder surgery (~2009) History of Problems with Anesthesia: No Social History Social History Are you a primary wound care rn to a significant other at home: No Do you presently have visiting nurse or other home services: No Patient Tobacco Use Status: Never used Tobacco Second Hand Smoke Exposure: No Use of substances other than those prescribed or required for medical reasons: No Have you been hit, kicked, punched, or otherwise hurt by someone within the past year? If so, by whom?: No Spiritual Healthcare Practices: no Orthodoxy Healthcare Practices: no Cultural Healthcare Practices: no Are you DNR?: No Advance Directives: Yes (states spouse is HCP) Advance Directives Information Provided: Yes (as above noted) Advance Directives on File: No Advance Directives Date on File: 06/16/25 Patient : No : No Current occupational status: retired Current occupation: right hand dominant Meds Allergies Allergy/AdvReac Type Severity Reaction Status Date / Time No Known Allergies Allergy Verified 06/16/25 07:09 Home Medications ?Medication ?Instructions ?Recorded ?Confirmed ?Last Taken ?Type alendronate 70 mg tablet 70 mg PO QWEEK 05/06/25 06/16/25 Unknown History cholecalciferol (vitamin D3) 50 50 mcg PO DAILY 06/11/25 06/16/25 Unknown History mcg (2,000 unit) capsule (Vitamin D3) multivitamin 1 tab PO DAILY 06/11/25 06/16/25 Unknown History Exam Exam Date and Time: 06/16/25 0715 Height,Weight and Vital Signs: Height 5 ft 4 in Weight 76.204 kg Vital Signs Temperature 98.5 F 06/16/25 06:21 Pulse Rate 66 06/16/25 06:21 Respiratory Rate 16 06/16/25 06:21 Blood Pressure 131/55 L 06/16/25 06:21 Pulse Oximetry 98 06/16/25 06:21 Oxygen Delivery Method Room Air 06/16/25 06:21 Temperature 98.5 F 06/16/25 06:21 Pulse Rate 66 06/16/25 06:21 Respiratory Rate 16 06/16/25 06:21 Blood Pressure 131/55 L 06/16/25 06:21 Pulse Oximetry 98 06/16/25 06:21 Oxygen Delivery Method Room Air 06/16/25 06:21 Airway Mallampati Class: I TM Dist: >3cm Neck ROM: Limited Loose/Missing/Broken Teeth: No (patient denies any loose or broken teeth) Heart: S1S2 Lungs: CTAB Assessment and Plan Assessment Anesthesia Assessment: Anesthesia Plan Discussed and Chart Reviewed Final Anesthetic Review Family History of Problems with Anesthesia: No History of Problems with Anesthesia: No NPO: Yes ASA Class: II Final Preanesthetic Review: No Changes in Pt Med Stat, Meds/Allgs Chart Reviewed, Consent Obtained/Reviewed and Anes Risks/Benef Reviewed Patient Risk: Low Procedure Risk: Low Anesthetic Plan Anesthetic Plan: GA and Agree w/ Assess. and Plan Disposition: Standard PACU
--- NOTE | 2025-06-16 08:49 | PM.OP ---
Brief Operative Note Date of Service: 06/16/25 Pre-op diagnosis: Left knee medial meniscus tear, left knee degenerative joint disease Post-op diagnosis: same Procedure: Left knee arthroscopic partial medial meniscectomy, left knee arthroscopic chondroplasty of the undersurface of the patella as well as the medial femoral condyle Implants: none Surgeon: Lucho Hernandez MD Anesthesia: GLMA Was an Control Clerk Food And Beverage used for this Procedure?: No Estimated blood loss (mL): 10 Pathology: none sent Condition: stable Disposition: PACU
--- NOTE | 2025-06-16 08:50 | P.OP_ITS ---
Operative Note Operative Note Date of Service: 06/16/25 Narrative: After the patient was identified as Kayleen Rea and her left knee was initialed by myself they were brought to the operating room where general anesthesia was induced by the anesthesiologist in routine fashion. The patient was given 2 g of IV Ancef preoperatively for infection prophylaxis. The patient's left lower extremity was prepped and draped in sterile fashion. A formal time-out was completed. Marcaine was injected into the planned incision sites as well as the patient's left knee joint. A #11 scalpel blade was used to make an anterolateral portal 1 cm proximal to the joint line and 1 cm lateral to the pa tellar tendon. Blunt trocar technique was used to enter the suprapatellar pouch with the knee in extension. Diagnostic arthroscopy showed multiple bands of thickened plica which would be excised at the end of the procedure. There were no loose bodies or abnormalities found in either the medial or lateral gutters. The articular surface of the patella showed diffuse grades 1 and 2 degenerative changes. The trochlear groove articular surface showed diffuse grade 1 degenerative changes. The patient's knee was flexed to 45 degrees and a valgus force was placed upon it. The medial compartment was entered. An anteromedial portal was made 1 cm proximal to the joint line and 1 cm medial to the patellar tendon. Probing of the medial meniscus showed a radial tear of the posterior horn. A partial medial meniscectomy was performed using the arthroscopic shaver. Following the partial meniscectomy the remainder of the meniscus tissue was stable. There were diffuse grades 1 and 2 degenerative changes of the medial femoral condyle as well as grade 1 degenerative changes of the medial tibial plateau. The articular surface of the medial femoral condyle was then made smooth using the arthroscopic shaver. The articular surface of the medial tibial plateau was already smooth so no chondroplasty was indicated. The patient's knee was placed into a neutral position. There was no injury to the anterior cruciate ligament. The patient's knee was then placed in the figure of 4 position and the lateral compartment was entered. There was no evidence of lateral meniscus tearing. There were minimal degenerative changes of the lateral femoral condyle and lateral tibial plateau. The patient's knee was once again brought into extension and the suprapatellar pouch was entered. The arth roscopic shaver and the ArthroCare Wand were used to excise the thickened bands of plica. The undersurface of the patella was then made smooth using the arthroscopic shaver. The articular surface of the trochlear groove was already smooth so no chondroplasty was indicated. The knee joint was irrigated and then drained. All arthroscopic instruments were removed. The 2 portals were closed with 3-0 nylon interrupted suture. The knee joint was injected with Marcaine. Dry sterile dressing and Javid bandages were placed over the patient's knee. The patient was awoken and extubated in the operating room. The patient was transferred to the recovery room in stable condition.
[2025-06-16] MEDS: oxyCODONE HCl Immed Release 5 MG TABLET PO (09:35)
== END 2025-06-16 10:14 | disposition home or self-care (01) ==
PROVIDERS: PCP Internal Medicine; Visit Provider Orthopaedic Surgery
PROC: (CPT 29870; principal; 2025-06-16 07:30)
DX: S83.242A Other tear of medial meniscus, current injury, left knee, initial encounter (principal); M17.12 Unilateral primary osteoarthritis, left knee; M25.562 Pain in left knee; M67.52 Plica syndrome, left knee; X58.XXXA Exposure to other specified factors, initial encounter; Y93.9 Activity, unspecified; Y92.9 Unspecified place or not applicable; Y99.9 Unspecified external cause status; Z87.19 Personal history of other diseases of the digestive system; M85.80 Other specified disorders of bone density and structure, unspecified site; M54.9 Dorsalgia, unspecified; M25.512 Pain in left shoulder; D64.9 Anemia, unspecified; E78.00 Pure hypercholesterolemia, unspecified; L71.9 Rosacea, unspecified; Z79.899 Other long term (current) drug therapy; Z98.1 Arthrodesis status; Z98.890 Other specified postprocedural states
CPT/HCPCS: 29881; J0131; J0165; J0690; J0696; J1100; J1885; J2003; J2405; J2704; J2795; J3010

== ENCOUNTER → 2025-06-16 05:42 | Outpatient (BNV) | payer MEDICARE, OTHER, SELFPAY | PROVIDERS: PCP Internal Medicine; Visit Provider Orthopaedic Surgery | DX: S83.242A Other tear of medial meniscus, current injury, left knee, initial encounter (principal) | CPT/HCPCS: 29881 ==

== ENCOUNTER 2025-07-01 13:01 | Outpatient (AMB) | payer MEDICARE, OTHER, SELFPAY ==
--- NOTE | 2025-07-01 13:06 | MHC.OFFVIS ---
Intake Visit Reasons: PO LT knee 06/16/25 Intake Note: Kayleen is a 69 year old female who presents today for a post operative appointment status post Left knee arthroscopic partial medial meniscectomy, left knee arthroscopic chondroplasty of the undersurface of the patella as well as the medial femoral condyle 06/16/25 Patient reports having no pain at the moment. She has been taking her medication when she needs it. Accompanied by: Spouse Allergies No Known Allergies Allergy (Verified 07/01/25 13:11) HPI HPI PO LT knee 06/16/25 DR: Details: Ms. Rea is a 69-year-old female who presents to the office today status post left knee arthroscopy performed on 06/16/[address] Hernandez. Overall patient states that she is doing very well. Her pain is well managed. She has no complaints at this time. [facility] Medical History PONV (postoperative nausea and vomiting) Rosacea Dense breasts Osteopenia Hyperlipidemia Anemia Adjustment disorder Back pain Elevated cholesterol Left shoulder pain Surgical History (Updated 07/01/25 @ 15:07 by Latonya Cano PA-C) History of excision of mass Hx of cervical discectomy H/O section Hx of colonoscopy Hx of appendectomy Hx of shoulder surgery (~2009) Social History Are you a primary home health aide caregiver to a significant other at home: No Do you presently have visiting nurse or other home services: No Patient Tobacco Use Status: Never used Tobacco Second Hand Smoke Exposure: No Advance Directives Date on File: 06/16/25 Current occupational status: retired Current occupation: right hand dominant Review of Systems Const All systems reviewed & are unremarkable except as noted in HPI and below Physical Exam Const General: cooperative, healthy appearing and no acute distress Resp Effort & Inspection: normal respiratory effort and able to speak in complete sentences Extrem Other: Left knee incision sites are clean dry and intact. Sutures intact. No surrounding erythema or drainage. No signs of infection. Range of motion 10 to 110 degrees. NVI. Psych Appearance: grossly normal Mental Status: mental status grossly normal Attitude: cooperative Assessment & Plan Assessment & Plan (1) Status post arthroscopy of left knee: Code(s): Z98.890 - Other specified postprocedural states Category: Surgical Plan Ms. Rea is a 69-year-old female who presents to the office today status post left knee arthroscopy performed on 06/16/[address] Hernandez. Overall patient states that she is doing very well. Her pain is well managed. She has no complaints at this time. While in the office today, sutures were removed and Steri-Strips were applied. We discussed the role of physical therapy in which the patient would like to attend 1-2 sessions with instruction of a home exercise program. A physical therapy order has been placed while in the office today. She will follow up with Orthopedics p.r.n., sooner if needed. Orders: Orders PT Evaluation and Treatment Today S83.242A - Other tear of medial meniscus, current injury, left knee, initial encounter, Z98.890 - Other specified postprocedural states Coding Level of Care Code Global (47291) Diagnoses Status post arthroscopy of left knee Z98.890
--- OUTSIDE RECORDS SUMMARY | 2025-07-01 16:47 | XMS_ITS | Clinical Summary ---
Author Organization [facility] Address [address] [place] [address] Care Team Providers Care Foundation Digger Name Role Phone Gibran Jane MD Primary [...] age to complete this topic Care Teams Foundation Digger Relationship Specialty Start Date End Date Gibran Jane MD [address] [place] [address] PCP - General Housekeeper And Laundry Assistant 12/11/18
--- OUTSIDE RECORDS SUMMARY | 2025-07-01 16:47 | XMS_ITS | Data Portability ---
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 Name Role Phone NICCARON HALL Primary Care [...] By Organization Details Last Modified Time 01/31/2025 [id number] Please note: Parts of this encounter note [...] Organization Details Recorded Time Mass of neck 753363829 Active 2015 Localized swelling, mass and lump, neck; Note: Date Diagnosed : 12/16/2015 12:34 PM (R22.1) Not Available [facility] 4 02:31:36 Neck swelling 125342031 Active 2015 Localized swelling, mass and lump, neck; Note: Date Diagnosed : 12/16/2015 12:34 PM (R22.1) Not Available [facility] 4 02:31:36 Disorder of smell 851168746 Active 2020 Unspecifi ed disturban marin of smell and taste; Note: Date Diagnosed : 1 2:06 PM (R43.9) Not Available [facility] 4 02:31:36 Disorder of taste 781140376 Active 2020 Unspecifi ed disturban marin of smell and taste; Note: Date Diagnosed : 1 2:06 PM (R43.9) Not Available [facility] 4 02:31:36 Bilateral tinnitus 21542443257 02 Active 2024 ZEB SOTELO MD [address] [facility] [address], [place], [address] , [place] - [facility] 5 14:53:21 Sensorine ural hearing loss of bilateral ears 414537748 Active 2024 ZEB SOTELO MD [address] [facility], [place], [address] , [place] - [facility] 14:53:23 Problem Notes None recorded. Procedures Surgical History Date Name Laterality Status Provider Name and Address Organization Details Recorded Time 01/31/2025 Comp Audio with Tymps - 39249 & 15000 completed LAURENT JOHNSON MA, [facility]A [address] [place] [address],[place] [address], [place], [address], [place] - [facility] 01/31/2025 14:15:14 Imaging Results None recorded. Procedure [...] layed release 07/21 completed Medicatio n ID: [id number] Du ration Value: 30 Brand Name: aspirin S end Method: E-Prescri bed Subs Allowed: subs OK Medica tionGener icName: aspirin Not Available Not Available Not Available metronida zole 0.75 % lotion 07/21 completed Medicatio n ID: [id number] Du ration Value: 30 Brand Name: metronida zole Send Method: E-Prescri bed Subs Allowed: subs OK Specia l Instructi on: APPLY AND RUB IN A THIN FILM TO AFFECTED AREAS TWICE DAILY.(AM AND PM) . Medicat ionGeneri cName: metronida zole Not Available Not Available Not Available Vitamin D2 1,250 mcg (50,000 unit) capsule 07/21 completed Medicatio n ID: [id number] Br and Name: Vitamin D2 Send Method: E-Prescri bed Subs Allowed: subs OK Medica tionGener icName: Vitamin D2 Not Available Not Available Not Available Estrace 0.01% (0.1 mg/gram) vaginal cream 07/21 completed Medicatio n ID: [id number] Du ration Value: 90 Brand Name: Estrace [...] Updated DateTime 01/31/2025 162.56 cm 28.7 kg/m2 77123.93 g ABBI CECY DILLARD - [facility] 01/31/2025 14:28:47 Social History None recorded. Functional Status Question Answer Note LastModified by Organizat ion Details LastModified Time What is your level of alcohol consumption? Occasional ccomi Information not available 01/31/2025 Mental Status None recorded. Family History Nothing Reported. Medical History Condition Response Allergies/Hayfever N Heart Problems N Anxiety N Tonsil Infections N Emphysema N Migraines N Thyroid Problems N Depression N COPD N Developmental Delay N Glaucoma N Nasal or Sinus Problems N Anemia N Immune System Disorder N Anesthesia Complications N Heart Attack (NM) N Other Skin Condition N Diabetes N Rhinitis N Bleeding Disorder N Food Allergy N Hearing Loss N Arthritis N Hyperlipidemia N Cancer N Stroke N Dementia N Nasal polyps N Asthma N Sleep Disorder N High Cholesterol N GERD/Reflux N Liver Disease N Headaches N Fibromyalgia N Hypertension N Speech Delay N Kidney Disease N Gynecological HistoryNo gynecological history recorded. Obstetrics History GPAL:G 0 P 0 0 0 0 Past Encounters Encounter ID Performer Location Encounter Start Date Encounter Closed Date Diagnosis/Indication Diagnosis SNOMED-CT Code Diagnosis ICD10 Code Diagnosis IMO Codes Diagnosis Note [id number] ZEB SOTELO MD [facility] [address] [address] 01/31/2025 13:21:26 01/31/2025 15:46:32 Bilateral tinnitus 9611266632 102 H93.13 [id number] Today we discussed the pathophysi ology of [...] Sensorineu ral hearing loss of bilateral ears 592559949 H90.3 [id number] Mild HF SNHL bilateral with otherwise normal hearing levels. likely age related and not specific to her tinnitus [id number] LAURENT JOHNSON MA, CCC-A [facility] [address] [address] 01/31/2025 13:30:14 01/31/2025 14:23:29 Bilateral tinnitus 9311118081 102 H93.13 Audiologic al evaluation results: Right [...] Member ID Guarantor Name 01/31/2025 1 MEDICARE B-CO: [employer] Kayleen A Álvaro [id number] Kayleen Álvaro 02/05/2025 2 [facility] (MEDICARE SUPPLEMENT) Kayleen A Álvaro [id number] Kayleen Álvaro 01/31/2025 1 [employer] [id number] Kayleen Álvaro [id number] Kayleen Álvaro Notes Date Note Type Note Provider Name and Address Organization Details Recorded Time 01/31/2025 text/html Audiological Evaluation HPIReported by Patient Longstanding tinnitus; getting louder LAURENT JOHNSON MA, CCC-A [address] [place] [address], [place], [address], [facility] - [facility] 01/31/2025 14:18:21 01/31/2025 text/html left tinnitus PV [...] two 10-ounce cups daily. ZEB SOTELO MD [address] [place] [address], [place], [address], [facility] - [facility] 01/31/2025 14:55:18 OBGyn Episode No OBEpisode recorded.
== END 2025-07-01 13:25 | disposition home or self-care (01) ==
LOC: HO.HOS 13:02
PROVIDERS: PCP Internal Medicine; Visit Provider Physician Assistant
DX: Z98.890 Other specified postprocedural states (principal)
CPT/HCPCS: 99024

== ENCOUNTER → 2025-07-01 13:01 | Outpatient (BNVA) | payer MEDICARE, OTHER, SELFPAY | PROVIDERS: PCP Internal Medicine; Visit Provider Physician Assistant | DX: Z98.890 Other specified postprocedural states (principal) | CPT/HCPCS: 99212 ==